=== PATIENT | male | born 1940 | race Caucasian/White ===

== ENCOUNTER 2021-11-26 08:10 | Inpatient (IN) ==
[2021-11-26] MEDS ORDERED: KETOROLAC TROMETHAMINE 15 MG/ML VIAL IV ONE (08:30)
--- NOTE | 2021-11-26 08:32 | Emergency Department Note ---
Impression & Plan Left inguinal pain, Acute pain of left hip ED Provider Note Provider: Temo Mack MD DATE OF SERVICE: 11/26/2021 CHIEF COMPLAINT: Left groin pain HISTORY OF PRESENT ILLNESS: Patient is a 81-year-old gentleman history of hypertension and left inguinal hernia repair in 2019 presenting today with the onset this morning of pain in the left inguinal region around 5 AM. Patient states is worse with movement and cannot move his left leg. Denies significant listing or strain or falls. Patient however is not the best historian and is a bit forgetful during exam. Patient denies numbness or tingling in the lower extremities. Denies other upper abdominal pain. Denies testicular pain. P atient denies fever chills or recent URI symptoms. Patient states his tried to massage the area to help with the pain. Was not effective he does not think he took anything else for pain this morning. States he has been having some on and off discomfort here for some time but cannot give me a lot of details. Family states that he is not been able to walk well and they are concerned about his ability to fall and obviously he is in too much pain to walk today. REVIEW OF SYSTEMS: A total of 10 review of systems was obtained and negative except as stated above in the HPI. PAST MEDICAL HISTORY: As noted above MEDICATIONS: Reviewed home medications SOCIAL HISTORY: Lives at home with PHYSICAL EXAM: GENERAL: alert and oriented to person and month in no acute distress on stretcher but a bit foggy as to the year Head: normocephalic and atraumatic EYES: No injection, discharge or icterus. NECK: Trachea midline. Supple. ENT: Mucous membranes pink and moist. LUNGS: Airway patent. No retractions. Breath sounds clear with good air entry bilaterally. HEART: Regular rate and rhythm. No chest wall tenderness ABDOMEN: Soft and non-tender, without guarding or rebound except for some mild tenderness in the left mid to medial inguinal region. No large bulge appreciated here erythema. No crepitus. SKIN: Acyanotic, warm, dry, without rashes EXTREMITIES: Without swelling, tenderness or deformity however pain with trying to move a range of the left hip. 2+ left DP pulse. No swelling of the left knee or lower leg. No erythema noted left lower leg NEUROLOGICAL: No focal deficits but limitations of movement of the left lower extremity secondary to pain at the hip.. No aphasia. No facial droop or slurred speech. Does have a bit of word finding. Sensation to gross touch normal. PDMP was checked without noted issue. Patient's laboratory studies and imaging reviewed. Differential includes Appendicitis, testicular torsion, infections, diverticulitis, UTI, obstruction, mesenteric ischemia, aortic pathology, inflammatory bowel disease, renal colic, PUD, pancreatitis, biliary pathology, hernia, volvulus, constipation, as well as other pathologies. IMPRESSION/MEDICAL DECISION MAKING: Patient presents waking up with left inguinal pain a little bit of radiation to the left upper thigh. Pain with movement of the leg but denies trauma. Patient himself however is not the best historian. No evidence of significant swelling of the left leg with erythema in this area. No large bulge appreciated. Denies significant testicular pain via history or on palpation with nurse present in the room. Benign abdomen otherwise. Denies nausea or vomiting. Basic labs and CT obtained given history of surgical intervention left inguinal region. I doubt this represents DVT. Blood work here without significant leukocytosis and borderline anemia. No severe electrolyte abnormality or signs of hepatitis or pancreatitis on blood work. Patient with moderate to severe bilateral hip arthritis without evidence of acute fracture or dislocation. CT imaging does not note any evidence of diverticulitis or bowel wall thickening or obstruction. No evidence of hydronep hrosis concerning for kidney stone noted by radiology report as well as no left inguinal hernia. Patient still with significant pain unable to move the leg after medications. states the patient was out 2 days ago doing a lot of yard work walking around. Unable to walk now and with several doses of pain medication on board the patient, family, and myself do not feel that he would be able to ambulate and transfer and care for self at home. Will bring in for further pain control at this time. DIAGNOSIS: Left inguinal and hip pain DISPOSITION: Hospitalist will evaluate Patient was agreeable with this plan. Past Med/Surg History Medical History (Updated 11/26/21 @ 11:49 by Kolton Mckeon MD) Arthritis Hyperlipidemia Hypertension Hypothyroidism Memory deficit POOR HISTORIAN SOB (shortness of breath) on exertion Surgical History History of cardiac cath 30+ YRS AGO 2 STENTS F/U [facility] DR-NAME? ANNUALLY History of colonoscopy History of esophagogastroduodenoscopy (EGD) History of foot surgery Previous back surgery X 2 Social History Smoking Status: Unknown if ever smoked Second Hand Exposure: No; Hx Alcohol Use: Yes Alcohol type: wine Hx Substance Use: No Preferred Language: Nepalese Communication Ability: Effective Rodent Exterminator Required: No Beliefs That Will Affect Care: None Current Living Situation: Spouse and Family Feels Safe at Home: Yes Assistive Devices: Cane and Glasses Allergies Allergies Allergy/AdvReac Type Severity Reaction Status Date / Time No Known Allergies Allergy Verified 05/11/19 08:13 Home Meds Home Medications Medication Instructions Recorded Confirmed Calcium Carbonate (Tums) 1 - 2 tabs PO PRN ##0 08/02/10 05/11/19 Metoprolol Tartrate (Lopressor 1 tab PO BID ##0 08/11/10 11/26/21 Unknown Dose) Artificial Tears 1 - 2 drp OPB PRN #0 BTLS 08/12/10 05/11/19 acetaminophen 650 mg 650 mg PO Q12H PRN Pain 04/22/19 11/26/21 tablet,extended release (Tylenol Arthritis Pain) atorvastatin 20 mg tablet 20 mg PO QAM 04/22/19 05/11/19 omega 5-ioj-vsx-fish oil 1,000 mg 1 cap PO QAM 04/22/19 05/11/19 (120 mg-180 mg) capsule (Fish Oil) thyroid (pork) 30 mg tablet 30 mg PO QAM 04/22/19 05/11/19 ([place] Thyroid) Probiotic 1 tab PO BID 05/11/19 05/11/19 acetaminophen 500 mg tablet 500 mg PO QID PRN Pain 05/11/19 05/11/19 (Tylenol Extra Strength) aspirin 81 mg tablet,delayed 81 mg PO DAILY 05/11/19 05/11/19 release calcium carbonate 600 mg calcium 600 mg PO DAILY 05/11/19 05/11/19 (1,500 mg) tablet (Calcium) cholecalciferol (vitamin D3) 25 25 mcg PO DAILY 05/11/19 05/11/19 mcg (1,000 unit) tablet (Vitamin D3) coQ10 (ubiquinol) 200 mg capsule 200 mg PO DAILY 05/11/19 11/26/21 cyanocobalamin (vitamin B-12) 3,000 mcg subcut 05/11/19 1,000 mcg/mL injection kit (B-12 Compliance) prasterone (dhea) 50 mg tablet 50 mg PO DAILY 05/11/19 05/11/19 (DHEA) vitamin E 268 mg (400 unit) capsule 400 unit PO DAILY 05/11/19 05/11/19 Previous Rx's Medication Instructions Recorded oxycodone-acetaminophen 5 mg-325 1 tab PO Q4H PRN pain #10 tabs 05/11/19 mg tablet (Percocet) Results & Data (ED) Vital Signs Vital Signs - 24 hr 11/26/21 08:17 11/26/21 08:36 11/26/21 09:34 Temperature 36.7 C Temperature Source Oral Pulse Rate 76 73 Pulse Rate from SpO2 Sensor 70 Respiratory Rate 18 20 Blood Pressure 170/77 H 161/73 H 177/93 H Blood Pressure Mean 108 102 121 Pulse Oximetry 94 98 Oxygen Delivery Method Room Air Room Air Sepsis Recent Fever Within 48 Hours No Sepsis New/Unexplained Change in Mental Status No Sepsis Action Taken by Nursing No Action Required 11/26/21 09:34 11/26/21 10:00 11/26/21 10:05 Temperature Temperature Source Pulse Rate Pulse Rate from SpO2 Sensor 79 68 Respiratory Rate Blood Pressure 149/66 H Blood Pressure Mean 93 Pulse Oximetry 100 98 Oxygen Delivery Method Sepsis Recent Fever Within 48 Hours Sepsis New/Unexplained Change in Mental Status Sepsis Action Taken by Nursing 11/26/21 10:05 11/26/21 10:30 11/26/21 10:30 Temperature Temperature Source Pulse Rate 78 79 Pulse Rate from SpO2 Sensor 70 78 Respiratory Rate 26 H 18 Blood Pressure 155/80 H Blood Pressure Mean 105 Pulse Oximetry 96 94 Oxygen Delivery Method Sepsis Recent Fever Within 48 Hours Sepsis New/Unexplained Change in Mental Status Sepsis Action Taken by Nursing 11/26/21 11:00 11/26/21 11:00 11/26/21 11:30 Temperature Temperature Source Pulse Rate 76 Pulse Rate from SpO2 Sensor 76 Respiratory Rate 20 Blood Pressure 163/88 H 147/86 H Blood Pressure Mean 113 106 Pulse Oximetry 97 Oxygen Delivery Method Sepsis Recent Fever Within 48 Hours Sepsis New/Unexplained Change in Mental Status Sepsis Action Taken by Nursing 11/26/21 11:30 Temperature Temperature Source Pulse Rate 71 Pulse Rate from SpO2 Sensor 73 Respiratory Rate 18 Blood Pressure Blood Pressure Mean Pulse Oximetry 97 Oxygen Delivery Method Sepsis Recent Fever Within 48 Hours Sepsis New/Unexplained Change in Mental Status Sepsis Action Taken by Nursing Laboratory Data Result diagrams: 11/26/21 08:20 11/26/21 08:20 Lab Results 11/26/21 11/26/21 11/26/21 Range/Units 08:20 08:20 08:38 WBC 9.34 (4.8-10.8) K/ul RBC 4.10 L (4.63-6.08) M/uL Hgb 13.5 L (14.0-18.0) g/dl Hct 40.3 (40.1-51.0) % MCV 98.3 (80.0-100.0) fL MCH 32.9 (25.0-34.0) pg MCHC 33.5 (32.0-36.0) g/dL RDW Std Deviation 46.9 H (36.4-46.3) fL RDW Coeff of Jordan 13.1 (11.5-14.5) % Plt Count 210 (130-400) K/uL MPV 9.8 (9.4-12.4) fL Immature Gran % (Auto) 0.2 % Neut % (Auto) 73.4 % Lymph % (Auto) 12.5 % Gonzales % (Auto) 9.9 % Eos % (Auto) 3.4 % Baso % (Auto) 0.6 % Neut # (Auto) 6.85 H (1.4-6.5) K/uL Lymph # (Auto) 1.17 L (1.2-3.4) K/uL Gonzales # (Auto) 0.92 H (0.24-0.82) K/uL Eos # (Auto) 0.32 (0-0.50) K/uL Baso # (Auto) 0.06 (0-0.2) K/uL Immature Gran # (Auto) 0.02 (0.00-0.02) K/uL Sodium 141 (136-145) mmol/L Potassium 4.1 (3.5-5.1) mmol/L Chloride 107 (98-107) mmol/L Carbon Dioxide 30 (21-32) mmol/L Anion Gap 4 (3-11) BUN 25 H (6-23) mg/dl Creatinine 1.00 (0.6-1.4) mg/dl Est Cr Clr Drug Dosing Not Reportable Est GFR ( Amer) 80.3 ml/min Est GFR (Non-Af Amer) 69.3 ml/min BUN/Creatinine Ratio 25.0 H (10-20) Glucose 113 H (70-99(Fasting)) mg/dl Calcium 9.1 (8.5-10.1) mg/dl Total Bilirubin 0.7 (0.2-1.0) mg/dl AST 17 (13-39) U/L ALT 16 (7-52) U/L Alkaline Phosphatase 76 (34-104) U/L Total Protein 6.7 (6.0-8.3) gm/dl Albumin 3.9 (3.4-5.0) gm/dl Globulin 2.8 (2.5-4.0) gm/dl Albumin/Globulin Ratio 1.4 (0.9-2) Lipase 6 L (11-82) U/L SARS-CoV-2, RNA, NAAT NEGATIVE (NEGATIVE) Administered Medications Discontinued Medications Enoxaparin Sodium (Enoxaparin Inj 40 Mg/0.4 Ml Syr) 40 mg SQ NOW STA Stop: 11/26/21 11:48 Last Admin: 11/26/21 13:20 Dose: 40 mg Documented By: DEBBIE Fentanyl Citrate (Fentanyl Citrate 100 Mcg/2 Ml Vial) 50 mcg IV NOW STA Stop: 11/26/21 09:27 Last Admin: 11/26/21 09:39 Dose: 50 mcg Documented By: JOHN Ibuprofen (Ibuprofen 600 Mg Tab) 600 mg PO NOW STA Stop: 11/26/21 11:48 Last Admin: 11/26/21 13:20 Dose: 600 mg Documented By: DEBBIE Ioversol (Optiray 320 100ml) 94 ml IV ONCE ONE Stop: 11/26/21 09:48 Last Admin: 11/26/21 09:49 Dose: 94 ml Documented By: DONNA Ketorolac Tromethamine (Ketorolac Tromethamine 15 Mg/Ml Vial) 10 mg IV NOW ONE Stop: 11/26/21 08:31 Last Admin: 11/26/21 08:37 Dose: 10 mg Documented By: JOHN Morphine Sulfate (Morphine Sulfate 4 Mg/Ml 1 Ml Carp\Vial) 4 mg IV NOW STA Stop: 11/26/21 10:07 Last Admin: 11/26/21 10:43 Dose: 4 mg Documented By: AM Imaging Data Radiologist's Impression: Abdomen/Pelvis CT 11/26/21 08:[address] WITH IV CONTRAST CT DOSE: 768.96 mGy.cm HISTORY: Left inguinal pain. TECHNIQUE: Multiaxial CT images of the abdomen and pelvis were performed following the use of intravenous contrast. A dose lowering technique was utilized adhering to the principles of ALARA. COMPARISON STUDY: None. FINDINGS: Suboptimal evaluation due to the motion artifact. The lung bases are essentially clear. No pneumoperitoneum. No pneumatosis. No acute fractures identified. Small fat-containing umbilical hernia. Degenerative changes noted within the lumbar spine. There are 2 hypodensities within the liver with the largest in the right hepatic lobe measuring 7.3 cm. These likely represent cysts. The gallbladder, pancreas, and adrenal glands are unremarkable. There are few punctate calcified granulomas within the spleen. Multiple bilateral peripelvic renal cysts. No renal or ureteral stones. No hydronephrosis. The main portal vein appears patent. Moderate calcified plaque within the normal caliber abdominal aorta. No retroperitoneal lymphadenopathy. No pelvic free fluid. Normal bladder. There is a tiny fat-containing right inguinal hernia. No bowel wall thickening or obstruction. Normal appendix. IMPRESSION: 1. No bowel wall thickening or obstruction. 2. Normal appendix. 3. No hydronephrosis. 4. Additional findings as described above. ACT 112: Negative or not required by law. Electronically signed by: Alfredo Acevedo M.D. 11/26/2021 9:58 AM Hip/Pelvis X-Ray 11/26/21 08:37 XR hip LT 2V w pelvis CLINICAL HISTORY: Left hip pain. COMPARISON: None FINDINGS: Sacroiliac joints and symphysis pubis are intact. No acute fracture within the pelvis or hips is identified. There is no evidence for avascular necrosis of the femoral heads. There is moderate to severe osteoarthritis of the bilateral hips with joint space narrowing and osteophytosis. No suspicious osseous lesion is identified. IMPRESSION: 1. No acute fracture within the pelvis or hips. 2. Moderate to severe bilateral hip osteoarthritis. ACT 112: Negative or not required by law. Electronically signed by: Carmelo Galeana M.D. 11/26/2021 9:42 AM Discharge Plan Visit Data Chief Complaint: Groin Pain Stated Complaint: L GROIN PAIN ED Provider: Temo Mack Discharge Problem: Left inguinal pain, Acute pain of left hip Patient Disposition: Being Evaluated by Hospitalist Discharge Instructions Interventions: ED Discharge Assessment Last Done: 11/26/21 13:35
[2021-11-26 08:33] LABS: Basophils # (auto) 0.06 K/uL (0-0.2); Basophils % (auto) 0.6 %; Eosinophils # (auto) 0.32 K/uL (0-0.50); Eosinophils % (auto) 3.4 %; Hematocrit (blood only) 40.3 % (40.1-51.0); Hemoglobin 13.5 g/dl (14.0-18.0); Immature Granulocytes # (auto) 0.02 K/uL (0.00-0.02); Immature Granulocytes % (auto) 0.2 %; Lymphocytes # (auto) 1.17 K/uL (1.2-3.4); Lymphocytes % (auto) 12.5 %; Mean Corpuscular Hemoglobin 32.9 pg (25.0-34.0); Mean Corpuscular Hgb Conc 33.5 g/dL (32.0-36.0); Mean Corpuscular Volume 98.3 fL (80.0-100.0); Mean Platelet Volume 9.8 fL (9.4-12.4); Monocytes # (auto) 0.92 K/uL (0.24-0.82); Monocytes % (auto) 9.9 %; Neutrophils # (auto) 6.85 K/uL (1.4-6.5); Neutrophils % (auto) 73.4 %; Platelet Count 210 K/uL (130-400); RDW Coefficient of Variation 13.1 % (11.5-14.5); RDW Standard Deviation 46.9 fL (36.4-46.3); White Blood Count 9.34 K/ul (4.8-10.8)
[2021-11-26 08:56] LABS: Alanine Aminotransferase 16 U/L (7-52); Albumin Globulin Ratio 1.4 (0.9-2); Albumin Level 3.9 gm/dl (3.4-5.0); Alkaline Phosphatase 76 U/L (34-104); Anion Gap 4 (3-11); Aspartate Aminotransferase 17 U/L (13-39); Bilirubin,Total 0.7 mg/dl (0.2-1.0); Blood Urea Nitrogen 25 mg/dl (6-23); Calcium 9.1 mg/dl (8.5-10.1); Carbon Dioxide 30 mmol/L (21-32); Chloride 107 mmol/L (98-107); Est GFR (African American) 80.3 ml/min; Est GFR (Non-African American) 69.3 ml/min; Globulin 2.8 gm/dl (2.5-4.0); Glucose 113 mg/dl (70-99(Fasting)); Lipase 6 U/L (11-82); Potassium 4.1 mmol/L (3.5-5.1); Sodium 141 mmol/L (136-145); Total Protein 6.7 gm/dl (6.0-8.3)
[2021-11-26] MEDS ORDERED: fentaNYL citrate 100 MCG/2 ML VIAL IV STA (09:26)
--- NOTE | 2021-11-26 09:44 | XRay Report ---
XR hip LT 2V w pelvis CLINICAL HISTORY: Left hip pain. COMPARISON: None FINDINGS: Sacroiliac joints and symphysis pubis are intact. No acute fracture within the pelvis or h ips is identified. There is no evidence for avascular necrosis of the femoral heads. There is moderat e to severe osteoarthritis of the bilateral hips with joint space narrowing and osteophytosis. No irene picious osseous lesion is identified. IMPRESSION: 1. No acute fracture within the pelvis or hips. 2. Moderate to severe bilateral hip osteoarthritis. ACT 112: Negative or not required by law. Electronically signed by: Carmelo Galeana M.D. 11/26/2021 9:42 AM
[2021-11-26] MEDS ORDERED: OPTIRAY 320 100ml IV ONE (09:47)
--- NOTE | 2021-11-26 10:00 | CT Scan Report ---
ABDOMEN AND PELVIS CT WITH IV CONTRAST CT DOSE: 768.96 mGy.cm HISTORY: Left inguinal pain. TECHNIQUE: Multiaxial CT images of the abdomen and pelvis were performed following the use of intrave nous contrast. A dose lowering technique was utilized adhering to the principles of ALARA. COMPARISON STUDY: None. FINDINGS: Suboptimal evaluation due to the motion artifact. The lung bases are essentially clear. No pneumoperitoneum. No pneumatosis. No acute fractures identified. Small fat-containing umbilical herni a. Degenerative changes noted within the lumbar spine. There are 2 hypodensities within the liver wit h the largest in the right hepatic lobe measuring 7.3 cm. These likely represent cysts. The gallbladd er, pancreas, and adrenal glands are unremarkable. There are few punctate calcified granulomas within the spleen. Multiple bilateral peripelvic renal cysts. No renal or ureteral stones. No hydronephrosi s. The main portal vein appears patent. Moderate calcified plaque within the normal caliber abdominal aorta. No retroperitoneal lymphadenopathy. No pelvic free fluid. Normal bladder. There is a tiny fat -containing right inguinal hernia. No bowel wall thickening or obstruction. Normal appendix. IMPRESSION: 1. No bowel wall thickening or obstruction. 2. Normal appendix. 3. No hydronephrosis. 4. Additional findings as described above. ACT 112: Negative or not required by law. Electronically signed by: Alfredo Acevedo M.D. 11/26/2021 9:58 AM
[2021-11-26] MEDS ORDERED: MoRPHine SULFATE 4 MG/ML 1 ML CARP\\VIAL IV STA (10:06)
[2021-11-26] MEDS ORDERED: ACETAMINOPHEN 500 MG TAB PO PRN (11:35)
[2021-11-26] MEDS ORDERED: IBUPROFEN 600 MG TAB PO STA (11:47)
[2021-11-26] MEDS ORDERED: ENOXAPARIN INJ 40 MG/0.4 ML SYR SQ STA (11:47)
--- NOTE | 2021-11-26 11:51 | History & Physical Report ---
Date of Service November 26, 2021 Assessment & Plan (1) Bilateral hip joint arthritis: Plan: Presented with left groin pain that goes up to the left knee Pelvis x-ray did not show severe bilateral hip arthritis Clinically worse in the left side with possible left greater trochanteric bursitis Has had injection before without any significant improvement Ortho has been consulted Will try ibuprofen regularly and narcotics as needed for pain control (2) Left inguinal pain: Plan: History of left inguinal hernia surgery The pain is mostly secondary to hip arthritis (3) Hypertension: Plan: Remains in the upper side Will continue home medications (4) Hypothyroidism: Plan: Continue replacement (5) Memory deficit: Plan: No delirium (6) Hyperlipidemia: Plan: Continue supplement DVT prophylaxis Subcu Lovenox CODE STATUS Full History of Present Illness Chief Complaint: Left groin pain since this morning and inability to ambulate Primary Care Provider: Angelo Cano MD He is an 81-year-old male with significant past medical history of atherosclerotic cardiovascular disease, chronic kidney disease stage III, BPH, hyperlipidemia, memory changes apparently has been complaining of Left inguinal pain for a while. He has had surgery for the left Inguinal Hernia years ago and he thinks the hernia surgery site is bothering him. His pain was worse this morning that he could hardly ambulate. He has been trying Tylenol occasionally to control the pain. His pain is worse with movement and it goes down to the left knee joint and denies any problem with urine and or bowel habit. He does not have any arthritis involving other joint. He has had injection in the left greater trochanteric area but that did not help the pain in the past. X-ray of the pelvis did show moderate to severe osteoarthritis involving the hips worse on the left than the right. Allergies Allergy/AdvReac Type Severity Reaction Status Date / Time No Known Allergies Allergy Verified 05/11/19 08:13 Home Medications Medication Instructions Recorded Confirmed Type Calcium Carbonate (Tums) 1 - 2 tabs PO PRN ##0 08/02/10 05/11/19 History Metoprolol Tartrate (Lopressor 1 tab PO BID ##0 08/11/10 11/26/21 History Unknown Dose) Artificial Tears 1 - 2 drp OPB PRN #0 BTLS 08/12/10 05/11/19 History acetaminophen 650 mg 650 mg PO Q12H PRN Pain 04/22/19 11/26/21 History tablet,extended release (Tylenol Arthritis Pain) atorvastatin 20 mg tablet 20 mg PO QAM 04/22/19 05/11/19 History omega 3-soy-vck-fish oil 1,000 mg 1 cap PO QAM 04/22/19 05/11/19 History (120 mg-180 mg) capsule (Fish Oil) thyroid (pork) 30 mg tablet 30 mg PO QAM 04/22/19 05/11/19 History ([place] Thyroid) Probiotic 1 tab PO BID 05/11/19 05/11/19 History acetaminophen 500 mg tablet 500 mg PO QID PRN Pain 05/11/19 05/11/19 History (Tylenol Extra Strength) aspirin 81 mg tablet,delayed 81 mg PO DAILY 05/11/19 05/11/19 History release calcium carbonate 600 mg calcium 600 mg PO DAILY 05/11/19 05/11/19 History (1,500 mg) tablet (Calcium) cholecalciferol (vitamin D3) 25 25 mcg PO DAILY 05/11/19 05/11/19 History mcg (1,000 unit) tablet (Vitamin D3) coQ10 (ubiquinol) 200 mg capsule 200 mg PO DAILY 05/11/19 11/26/21 History cyanocobalamin (vitamin B-12) 3,000 mcg subcut 05/11/19 History 1,000 mcg/mL injection kit (B-12 Compliance) oxycodone-acetaminophen 5 mg-325 1 tab PO Q4H PRN pain #10 tabs 05/11/19 Rx mg tablet (Percocet) prasterone (dhea) 50 mg tablet 50 mg PO DAILY 05/11/19 05/11/19 History (DHEA) vitamin E 268 mg (400 unit) capsule 400 unit PO DAILY 05/11/19 05/11/19 History Past Med/Surg History Medical History (Updated 11/26/21 @ 11:49 by Kolton Mckeon MD) Arthritis Hyperlipidemia Hypertension Hypothyroidism Memory deficit POOR HISTORIAN SOB (shortness of breath) on exertion Surgical History History of cardiac cath 30+ YRS AGO 2 STENTS F/[facility] DR-NAME? ANNUALLY History of colonoscopy History of esophagogastroduodenoscopy (EGD) History of foot surgery Previous back surgery X 2 Social History Smoking Status: Unknown if ever smoked Second Hand Exposure: No; Hx Alcohol Use: Yes Alcohol type: wine Hx Substance Use: No Preferred Language: Syrian Communication Ability: Effective Head Paper Tester Required: No Beliefs That Will Affect Care: None Current Living Situation: Spouse and Family Feels Safe at Home: Yes Assistive Devices: Cane and Glasses Review of Systems Review of Systems: All systems reviewed and are unremarkable except as noted below Musculoskeletal: Left hip pain and very tender left greater trochanteric area. Any movement of the left lower extremity caused severe pain in the left hip Physical Exam Physical Exam: Lying in bed with some distress secondary to left groin and hip pain Constitutional: well developed, well nourished, + ill appearing and + obese Eyes: PERRL, conjunctivae normal, anicteric sclerae ENMT: external ear and nose normal, oropharynx normal Neck: trachea midline, no thyromegaly Respiratory: no respiratory distress Auscultation: lungs clear to auscultation bilaterally Cardiovascular: Rate/Rhythm: regular rate and regular rhythm; not tachycardic Heart Sounds: normal S1 and normal S2; no murmur Extremities: no edema Gastrointestinal (Abdomen): Inspection/Auscultation: normal bowel sounds; abdomen not distended Percussion/Palpation: + abdomen tender (Tender in the left inguinal area with a small nodule/lymph node which is no) and abdomen soft Musculoskeletal: Hip: + joint line tenderness (Any movement of the left lower extremity caused severe pain in the left hip) Neurologic: Alert, awake and oriented x3 Lymphatic: no cervical or axillary lymphadenopathy Results & Data Results & Data ([facility]) Vital Signs (Past 12 Hours) Vital Signs Temp Pulse Resp BP Pulse Ox O2 Del Method 11/26/21 08:36 73 20 161/73 H 98 Room Air 11/26/21 08:17 36.7 C 76 18 170/77 H 94 Room Air Laboratory Results Short CBC 11/26/21 Range/Units 08:20 WBC 9.34 (4.8-10.8) K/ul Hgb 13.5 L (14.0-18.0) g/dl Hct 40.3 (40.1-51.0) % Plt Count 210 (130-400) K/uL BMP 11/26/21 08:20 Sodium 141 Potassium 4.1 Chloride 107 Carbon Dioxide 30 BUN 25 H Creatinine 1.00 Glucose 113 H Calcium 9.1 Liver Function 11/26/21 Range/Units 08:20 Total Bilirubin 0.7 (0.2-1.0) mg/dl AST 17 (13-39) U/L ALT 16 (7-52) U/L Alkaline Phosphatase 76 (34-104) U/L Albumin 3.9 (3.4-5.0) gm/dl Medications Administered Current Inpatient Medications Acetaminophen (Acetaminophen 500 Mg Tab) 1,000 mg PO Q8H PRN PRN Reason: Moderate Pain Stop: 12/26/21 11:44 Enoxaparin Sodium (Enoxaparin Inj 40 Mg/0.4 Ml Syr) 40 mg SQ QAM KAYLAN Stop: 12/27/21 08:59 Enoxaparin Sodium (Enoxaparin Inj 40 Mg/0.4 Ml Syr) 40 mg SQ NOW STA Stop: 11/26/21 11:48 Ibuprofen (Ibuprofen 600 Mg Tab) 600 mg PO Q8H KAYLAN Stop: 12/26/21 11:44 Ibuprofen (Ibuprofen 600 Mg Tab) 600 mg PO NOW STA Stop: 11/26/21 11:48 Code Status & VTE Plan VTE Prophylaxis Plan VTE Prophylaxis will be ordered: Yes
[2021-11-26 11:54] LABS: Appearance Urine Clear (Clear); Bilirubin Urine Negative (Negative); Blood Urine Negative (Negative); Color Urine Yellow; Glucose Urine UA Negative (Negative); Ketones Urine 1+ (Negative); Leukocyte Esterase Urine Negative (Negative); Nitrite Urine Negative (Negative); Protein Urine Negative (Negative); Specific Gravity Urine > 1.045 (1.000-1.030); Urobilinogen Urine Negative (Negative)
[2021-11-26] MEDS ORDERED: MoRPHine SULFATE 4 MG/ML 1 ML CARP\\VIAL IV PRN (13:48)
[2021-11-26] MEDS ORDERED: KETOROLAC TROMETHAMINE 15 MG/ML VIAL IV PRN (13:48)
[2021-11-26] MEDS ORDERED: ACETAMINOPHEN 325 MG TAB PO PRN (14:18)
--- NOTE | 2021-11-26 17:53 | Orthopedic Consultation ---
Date of Service November 26, 2021 Assessment & Plan (1) Acute pain of left hip: -Differential includes symptomatic hip arthritis vs trochanteric bursitis vs lumbar radiculopathy. Unclear based on history, exam, and hip XRs. -Recommend a trial of oral prednisone taper for pain control. -Check CRP, ESR to screen for baseline inflammatory condition -Needs PT/OT evaluation for placement, may need inpatient rehab vs SNF; can be WBAT LLE Dispo: Admit for observation and inpatient PT/OT evaluation. Call with questions Pt seen and discussed w/ Dr. Pal. History of Present Illness Reason for Consultation: L hip pain . Requesting Physician: Kolton Mckeon MD . Attending Physician: Kolton Mckeon MD Pt is an 81 y/o/m with PMHx of HTN, DLD, hypothyroidism, and baseline memory deficit who we are consulted on for L hip pain. Early this morning pt woke to severe left hip pain. His family tried getting him up out of bed but were unable to do so given his severe level of hip pain. He was subsequently brought to [facility] ED for evaluation. Work up has essentially been unrevealing except for XRs that show moderate degenerative changes. Family denies any recent history of falls or syncopal events. Seen at bedside. He is a poor historian but indicates his left groin, lateral hip, and posterior hip/Lumbar spine as areas he is experiencing pain. He denies numbness in the LLE but states that the leg have been "giving out" for awhile. Denies any chest pain, SOB, dizziness/lightheadedness, nausea/vomiting, subjective fever. 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 Home Medications Medication Instructions Recorded Confirmed Type atorvastatin 20 mg tablet 20 mg PO QAM 04/22/19 11/26/21 History aspirin 81 mg tablet,delayed 81 mg PO DAILY 05/11/19 11/26/21 History release cholecalciferol (vitamin D3) 25 25 mcg PO DAILY 05/11/19 11/26/21 History mcg (1,000 unit) tablet (Vitamin D3) coQ10 (ubiquinol) 200 mg capsule 200 mg PO DAILY 05/11/19 11/26/21 History prasterone (dhea) 50 mg tablet 50 mg PO DAILY 05/11/19 11/26/21 History (DHEA) Lactobacillus acidophilus 1.5 mg 1,000 mmu cells PO BID 11/26/21 11/26/21 History (250 million cell) capsule (Probiotic Acidophilus) acetaminophen 650 mg 650 mg PO Q8H PRN Pain 11/26/21 11/26/21 History tablet,extended release carbidopa 25 mg-levodopa 100 mg 1 tab PO TID 11/26/21 11/26/21 History tablet cyanocobalamin (vitamin B-12) 1,000 mcg sublingual DAILY 11/26/21 11/26/21 History 1,000 mcg sublingual tablet metoprolol tartrate 25 mg tablet 12.5 mg PO BID 11/26/21 11/26/21 History omega-3 fatty acids 1,250 mg 1,250 mg PO DAILY 11/26/21 11/26/21 History capsule vitamin E 268 mg (400 unit) capsule 268 mg PO DAILY 11/26/21 11/26/21 History Past Med/Surg History Medical History (Updated 11/26/21 @ 11:49 by Kolton Mckeon MD) Arthritis Hyperlipidemia Hypertension Hypothyroidism Memory deficit POOR HISTORIAN SOB (shortness of breath) on exertion Surgical History History of cardiac cath 30+ YRS AGO 2 STENTS F/U [facility] DR-NAME? 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 Physical Exam General: Pleasant 81 y/o/m resting in bed in NAD. Confused but interacting appropriately. LLE: He has tenderness globally throughout the left hip. He has tenderness to anterior proximal thigh as well. No swelling, bruising deformity noted. He has very guarded passive and active range of motion of the left hip joint. Passive log roll illicits worsening groin pain. He can perform a straight leg raise against gravity. He is distally N/V/I. Results & Data Results & Data Laboratory Results Reviewed . Diagnostic Findings Reviewed - Moderate degenerative changes in L hip joint . PG Care Time/CCT Total # of Minutes Spent Total Time Spent with Patient: Total time spent is greater than 50% in coordination of care (as documented) at patient's floor/unit and/or counseling patient: Coding Level of Care Code 73809 Inpt Consult Level 3 Diagnoses Acute pain of left hip M25.552
[2021-11-26] MEDS ORDERED: IBUPROFEN 600 MG TAB PO SCH (20:00)
[2021-11-26] MEDS: Patient's HEIGHT &/or WEIGHT Needed SCH ×3 (20:20→20:21)
[2021-11-26] MEDS: METOPROLOL TARTRATE 25 MG TAB PO SCH (21:26)
[2021-11-27 08:14] LABS: Basophils # (auto) 0.04 K/uL (0-0.2); Basophils % (auto) 0.5 %; Eosinophils # (auto) 0.08 K/uL (0-0.50); Eosinophils % (auto) 0.9 %; Hematocrit (blood only) 38.2 % (40.1-51.0); Immature Granulocytes # (auto) 0.03 K/uL (0.00-0.02); Immature Granulocytes % (auto) 0.4 %; Lymphocytes % (auto) 8.3 %; Mean Corpuscular Hemoglobin 33.1 pg (25.0-34.0); Mean Corpuscular Volume 97.2 fL (80.0-100.0); Mean Platelet Volume 10.2 fL (9.4-12.4); Monocytes # (auto) 0.64 K/uL (0.24-0.82); Monocytes % (auto) 7.6 %; Neutrophils # (auto) 6.98 K/uL (1.4-6.5); Neutrophils % (auto) 82.3 %; Platelet Count 199 K/uL (130-400); RDW Coefficient of Variation 13.2 % (11.5-14.5); RDW Standard Deviation 47.4 fL (36.4-46.3); Red Blood Count 3.93 M/uL (4.63-6.08); White Blood Count 8.47 K/ul (4.8-10.8)
[2021-11-27 08:37] LABS: BUN Creatinine Ratio 29.5 (10-20); C Reactive Protein 6.3 mg/dl (0-0.5); Calcium 8.7 mg/dl (8.5-10.1); Est GFR (African American) 85.5 ml/min; Est GFR (Non-African American) 73.7 ml/min; Magnesium 1.9 mg/dl (1.7-2.4); Potassium 3.9 mmol/L (3.5-5.1)
[2021-11-27] MEDS ORDERED: MoRPHine SULFATE 4 MG/ML 1 ML CARP\\VIAL IV PRN (08:40)
[2021-11-27] MEDS ORDERED: NON-FORMULARY MEDICATION (Coq10 (Ubiquinol) 200 mg Capsule) PO SCH (09:00)
[2021-11-27] MEDS: ACETAMINOPHEN 325 MG TAB PO SCH ×4 (10:16→23:25)
[2021-11-27] MEDS: oxyCODONE HCL IR 5 MG TAB (IMMEDIATE RELEASE) PO PRN ×3 (10:16→20:13)
[2021-11-27] MEDS: LIDOCAINE 5% 1 PATCH TD SCH (10:16)
[2021-11-27] MEDS: METOPROLOL TARTRATE 25 MG TAB PO SCH ×2 (11:11→20:09)
[2021-11-27] MEDS: ENOXAPARIN INJ 40 MG/0.4 ML SYR SQ SCH (13:32)
--- NOTE | 2021-11-27 19:39 | Hospitalist Progress Note ---
Date of Service November 27, 2021 Assessment & Plan (1) Bilateral hip joint arthritis: Plan: Presented with left groin pain that goes up to the left knee. Tenderness on palpation of hip L>R Pelvis x-ray did show moderate to severe bilateral hip arthritis but no fracture Seen by ortho- recommendations noted. ESR, CRP elevated. Continue pain management. Consider trial of oral steroids if not improving. Needs OP follow up for steroid injections consideration PT eval pending (2) Left inguinal pain: Plan: History of left inguinal hernia surgery The pain is mostly secondary to hip arthritis (3) Hypertension: Plan: Remains in the upper side Will continue home medications (4) Hypothyroidism: Plan: Continue replacement (5) Memory deficit: Plan: No delirium (6) Hyperlipidemia: Plan: Continue supplement DVT prophylaxis- Subcu Lovenox Updated Admission and Anticipated Discharge Date Admission Date: November 26, 2021 Subjective He was in severe pain this morning but had received pain meds prior to my encounter and was hence comfortable. Discussed about his bilateral hip osteoarthritis and options. No fever, chills, nausea, vomiting, abd pain. Physical Exam Physical Exam: General: Lying comfortably in bed, not in acute distress, on room air HEENT: EOMI, JUDY, MMM Chest: Clear breath sounds bilaterally, no wheezes or crackles CVS: Regular rate and rhythm, normal heart sounds, no murmur Abdomen: Soft, non tender, not distended, normal bowel sounds Neuro: Awake, alert and conversing well but tangential, forgetful Extremities: Tenderness on palpation of bilateral hip L>R. No edema Results & Data Results & Data ([facility]) Vital Signs (Past 12 Hours) Vital Signs Temp Pulse Resp BP BP Pulse Ox O2 Del Method 11/27/21 15:18 36.6 C 82 20 149/74 H 97 Room Air 11/27/21 09:10 36.8 C 80 16 141/69 H 98 Room Air 11/27/21 11:09 73 149/74 H Laboratory Results Short CBC 11/27/21 Range/Units 08:00 WBC 8.47 (4.8-10.8) K/ul Hgb 13.0 L (14.0-18.0) g/dl Hct 38.2 L (40.1-51.0) % Plt Count 199 (130-400) K/uL BMP 11/27/21 08:00 Sodium 139 Potassium 3.9 Chloride 106 Carbon Dioxide 27 BUN 28 H Creatinine 0.95 Glucose 162 H Calcium 8.7 Medications Administered Current Inpatient Medications Acetaminophen (Acetaminophen 325 Mg Tab) 650 mg PO Q6 [facility] Stop: 12/27/21 08:44 Last Admin: 11/27/21 18:07 Dose: 650 mg Enoxaparin Sodium (Enoxaparin Inj 40 Mg/0.4 Ml Syr) 40 mg SQ QAM [facility] Stop: 12/27/21 10:59 Last Admin: 11/27/21 13:32 Dose: 40 mg Lidocaine (Lidocaine 5% 1 Patch) 1 patch TD QAM [facility] Stop: 12/27/21 08:59 Last Admin: 11/27/21 10:16 Dose: 1 patch Metoprolol Tartrate (Metoprolol Tartrate 25 Mg Tab) 12.5 mg PO BID [facility] Stop: 12/26/21 20:59 Last Admin: 11/27/21 11:11 Dose: 12.5 mg Miscellaneous (Remove Lidoderm Patch) 1 each N/A DAILY@2100 [facility] Stop: 12/27/21 20:59 Morphine Sulfate (Morphine Sulfate 4 Mg/Ml 1 Ml Carp\Vial) 4 mg IV Q6H PRN PRN Reason: sev pain if unable to take po Stop: 12/10/21 13:47 Last Admin: 11/27/21 11:45 Dose: 4 mg Oxycodone HCl (Oxycodone Hcl Ir 5 Mg Tab (Immediate Release)) 5 mg PO Q4 PRN PRN Reason: sev Pain Stop: 12/11/21 08:39 Last Admin: 11/27/21 15:16 Dose: 5 mg
[2021-11-28] MEDS: oxyCODONE HCL IR 5 MG TAB (IMMEDIATE RELEASE) PO PRN ×2 (02:06→13:58)
[2021-11-28] MEDS: ACETAMINOPHEN 325 MG TAB PO SCH ×4 (05:15→23:48)
[2021-11-28] MEDS: LIDOCAINE 5% 1 PATCH TD SCH (09:19)
[2021-11-28] MEDS: METOPROLOL TARTRATE 25 MG TAB PO SCH ×2 (09:19→21:08)
[2021-11-28] MEDS: ENOXAPARIN INJ 40 MG/0.4 ML SYR SQ SCH (09:20)
--- NOTE | 2021-11-28 17:34 | Hospitalist Progress Note ---
Date of Service November 28, 2021 Assessment & Plan (1) Bilateral hip joint arthritis: Plan: Presented with left groin pain that goes up to the left knee. Tenderness on palpation of hip L>R yesterday but not appreciated today Pelvis x-ray did show moderate to severe bilateral hip arthritis but no fracture Seen by ortho- recommendations noted. ESR, CRP elevated. Continue pain management. Consider trial of oral steroids if not improving. Consider OP follow up for steroid injections consideration PT recommended rehab- informed CM (2) Left inguinal pain: Plan: History of left inguinal hernia surgery The pain is mostly secondary to hip arthritis (3) Hypertension: Plan: stable, continue home medications (4) Hypothyroidism: Plan: Continue replacement (5) Memory deficit: Plan: No delirium (6) Hyperlipidemia: Plan: Continue supplement DVT prophylaxis- Subcu Lovenox Updated over the phone Dispo- PT recommends rehab- CM following. Stable to go to rehab. Admission and Anticipated Discharge Date Admission Date: November 26, 2021 Subjective He feels better today. he is surprised he is not having any hip pain today. No fever, chills, chest pain, shortness of breath, nausea, vomiting. Physical Exam Physical Exam: General: Lying comfortably in bed, not in acute distress, on room air HEENT: EOMI, JUDY, MMM Chest: Clear breath sounds bilaterally, no wheezes or crackles CVS: Regular rate and rhythm, normal heart sounds, no murmur Abdomen: Soft, non tender, not distended, normal bowel sounds Neuro: Awake, alert and conversing well Extremities: No edema, no tenderness. Ice pack on left hip Results & Data Results & Data ([facility]) Vital Signs (Past 12 Hours) Vital Signs Temp Pulse Resp BP Pulse Ox O2 Del Method 11/28/21 17:07 36.7 C 66 18 117/66 95 Room Air 11/28/21 07:57 36.8 C 62 18 126/66 97 Room Air Medications Administered Current Inpatient Medications Acetaminophen (Acetaminophen 325 Mg Tab) 650 mg PO Q6 [facility] Stop: 12/27/21 08:44 Last Admin: 11/28/21 14:00 Dose: 650 mg Enoxaparin Sodium (Enoxaparin Inj 40 Mg/0.4 Ml Syr) 40 mg SQ QAM [facility] Stop: 12/27/21 10:59 Last Admin: 11/28/21 09:20 Dose: 40 mg Lidocaine (Lidocaine 5% 1 Patch) 1 patch TD QAM [facility] Stop: 12/27/21 08:59 Last Admin: 11/28/21 09:19 Dose: 1 patch Metoprolol Tartrate (Metoprolol Tartrate 25 Mg Tab) 12.5 mg PO BID [facility] Stop: 12/26/21 20:59 Last Admin: 11/28/21 09:19 Dose: 12.5 mg Miscellaneous (Remove Lidoderm Patch) 1 each N/A DAILY@2100 [facility] Stop: 12/27/21 20:59 Last Admin: 11/27/21 20:13 Dose: 1 each Morphine Sulfate (Morphine Sulfate 4 Mg/Ml 1 Ml Carp\Vial) 4 mg IV Q6H PRN PRN Reason: sev pain if unable to take po Stop: 12/10/21 13:47 Last Admin: 11/27/21 11:45 Dose: 4 mg Oxycodone HCl (Oxycodone Hcl Ir 5 Mg Tab (Immediate Release)) 5 mg PO Q4 PRN PRN Reason: sev Pain Stop: 12/11/21 08:39 Last Admin: 11/28/21 13:58 Dose: 5 mg
[2021-11-28] MEDS: POLYETHYLENE (MIRALAX) 17 GM PACK PO SCH (21:08)
[2021-11-28] MEDS: DOCUSATE SODIUM/SENNA 50/8.6MG TAB PO SCH (21:08)
[2021-11-29] MEDS: ACETAMINOPHEN 325 MG TAB PO SCH ×4 (05:02→23:32)
[2021-11-29] MEDS: POLYETHYLENE (MIRALAX) 17 GM PACK PO SCH (09:42)
[2021-11-29] MEDS: METOPROLOL TARTRATE 25 MG TAB PO SCH ×2 (09:43→20:34)
[2021-11-29] MEDS: DOCUSATE SODIUM/SENNA 50/8.6MG TAB PO SCH ×2 (09:44→20:34)
[2021-11-29] MEDS: ENOXAPARIN INJ 40 MG/0.4 ML SYR SQ SCH (09:45)
[2021-11-29] MEDS: LIDOCAINE 5% 1 PATCH TD SCH (09:46)
[2021-11-29] MEDS: oxyCODONE HCL IR 5 MG TAB (IMMEDIATE RELEASE) PO PRN ×3 (11:23→23:32)
--- NOTE | 2021-11-29 17:52 | Hospitalist Progress Note ---
Date of Service November 29, 2021 Assessment & Plan (1) Bilateral hip joint arthritis: Plan: Presented with left groin pain that goes up to the left knee. Tenderness on palpation of hip L>R yesterday but not appreciated today Pelvis x-ray did show moderate to severe bilateral hip arthritis but no fracture Seen by ortho- recommendations noted. ESR, CRP elevated. Continue pain management. Consider trial of oral steroids if not improving. Consider OP follow up for steroid injections consideration PT recommended rehab- informed CM Pain is minimally improved Will try diclofenac sodium over left greater trochanteric area (2) Left inguinal pain: Plan: History of left inguinal hernia surgery The pain is mostly secondary to hip arthritis (3) Hypertension: Plan: stable, continue home medications (4) Hypothyroidism: Plan: Continue replacement (5) Memory deficit: Plan: No delirium (6) Hyperlipidemia: Plan: Continue supplement DVT prophylaxis- Subcu Lovenox Updated over the phone Dispo- PT recommends rehab- CM following. Stable to go to rehab. Has had a long discussion with the patient Strongly advised to participate in physical therapy Admission and Anticipated Discharge Date Admission Date: November 26, 2021 Subjective 11/29/2021 The patient was seen and examined in medical floor Still complains to have some pain in the left groin and left greater trochanteric bursa Seems a little better compared with the day of admission Will continue physical therapy Review of Systems Review of Systems: All systems reviewed and are unremarkable except as noted below Physical Exam Physical Exam: Lying in bed with some distress secondary to left groin and hip pain Constitutional: well developed, well nourished, + ill appearing and + obese Eyes: PERRL, conjunctivae normal, anicteric sclerae ENMT: external ear and nose normal, oropharynx normal Neck: trachea midline, no thyromegaly Respiratory: no respiratory distress Auscultation: lungs clear to auscultation bilaterally Cardiovascular: Rate/Rhythm: regular rate and regular rhythm; not tachycardic Heart Sounds: normal S1 and normal S2; no murmur Extremities: no edema Gastrointestinal (Abdomen): Inspection/Auscultation: normal bowel sounds; abdomen not distended Percussion/Palpation: + abdomen tender (Tender in the left inguinal area with a small nodule/lymph node which is no) and abdomen soft Musculoskeletal: Hip: + joint line tenderness (Any movement of the left lower extremity caused severe pain in the left hip) Lymphatic: no cervical or axillary lymphadenopathy Results & Data Results & Data ([facility]) Vital Signs (Past 12 Hours) Vital Signs Temp Pulse Resp BP Pulse Ox O2 Del Method 11/29/21 08:44 36.8 C 92 H 18 146/82 H 97 Room Air Medications Administered Current Inpatient Medications Acetaminophen (Acetaminophen 325 Mg Tab) 650 mg PO Q6 [facility] Stop: 12/27/21 08:44 Last Admin: 11/29/21 17:44 Dose: 650 mg Enoxaparin Sodium (Enoxaparin Inj 40 Mg/0.4 Ml Syr) 40 mg SQ QAM [facility] Stop: 12/27/21 10:59 Last Admin: 11/29/21 09:45 Dose: 40 mg Lidocaine (Lidocaine 5% 1 Patch) 1 patch TD QAM [facility] Stop: 12/27/21 08:59 Last Admin: 11/29/21 09:46 Dose: 1 patch Metoprolol Tartrate (Metoprolol Tartrate 25 Mg Tab) 12.5 mg PO BID [facility] Stop: 12/26/21 20:59 Last Admin: 11/29/21 09:43 Dose: 12.5 mg Miscellaneous (Remove Lidoderm Patch) 1 each N/A DAILY@2100 [facility] Stop: 12/27/21 20:59 Last Admin: 11/28/21 21:08 Dose: 1 each Morphine Sulfate (Morphine Sulfate 4 Mg/Ml 1 Ml Carp\Vial) 4 mg IV Q6H PRN PRN Reason: sev pain if unable to take po Stop: 12/10/21 13:47 Last Admin: 11/27/21 11:45 Dose: 4 mg Oxycodone HCl (Oxycodone Hcl Ir 5 Mg Tab (Immediate Release)) 5 mg PO Q4 PRN PRN Reason: sev Pain Stop: 12/11/21 08:39 Last Admin: 11/29/21 17:44 Dose: 5 mg Polyethylene Glycol (Polyethylene (Miralax) 17 Gm Pack) 17 gm PO DAILY [facility] Stop: 12/28/21 18:44 Last Admin: 11/29/21 09:42 Dose: 17 gm Senna/Docusate Sodium (Docusate Sodium/Senna 50/8.6mg Tab) 1 tab PO BID [facility] Stop: 12/28/21 20:59 Last Admin: 11/29/21 09:44 Dose: 1 tab
[2021-11-29] MEDS: DICLOFENAC SOD 1% GEL 100 GM TUBE EXT SCH (20:34)
[2021-11-30] MEDS: ACETAMINOPHEN 325 MG TAB PO SCH ×3 (06:19→18:03)
[2021-11-30] MEDS: oxyCODONE HCL IR 5 MG TAB (IMMEDIATE RELEASE) PO PRN ×3 (08:39→18:03)
[2021-11-30] MEDS: METOPROLOL TARTRATE 25 MG TAB PO SCH ×2 (08:40→20:55)
[2021-11-30] MEDS: DOCUSATE SODIUM/SENNA 50/8.6MG TAB PO SCH ×2 (08:40→20:54)
[2021-11-30] MEDS: POLYETHYLENE (MIRALAX) 17 GM PACK PO SCH (08:41)
[2021-11-30] MEDS: LIDOCAINE 5% 1 PATCH TD SCH (08:41)
[2021-11-30] MEDS: ENOXAPARIN INJ 40 MG/0.4 ML SYR SQ SCH (08:41)
[2021-11-30] MEDS: DICLOFENAC SOD 1% GEL 100 GM TUBE EXT SCH ×2 (08:42→20:55)
--- NOTE | 2021-11-30 15:05 | Hospitalist Progress Note ---
Date of Service November 30, 2021 Assessment & Plan (1) Bilateral hip joint arthritis: Plan: Presented with left groin pain that goes up to the left knee. Tenderness on palpation of hip L>R yesterday but not appreciated today Pelvis x-ray did show moderate to severe bilateral hip arthritis but no fracture Seen by ortho- recommendations noted. ESR, CRP elevated. Continue pain management. Consider trial of oral steroids if not improving. Consider OP follow up for steroid injections consideration PT recommended rehab- informed CM Pain is minimally improved Will try diclofenac sodium over left greater trochanteric area Pain seems to be controlled as of today Has been accepted to [facility] We will discussed with the for the disposition (2) Left inguinal pain: Plan: History of left inguinal hernia surgery The pain is mostly secondary to hip arthritis Pain is controlled (3) Hypertension: Plan: stable, continue home medications (4) Hypothyroidism: Plan: Continue replacement (5) Memory deficit: Plan: No delirium (6) Hyperlipidemia: Plan: Continue supplement DVT prophylaxis- Subcu Lovenox Updated over the phone Dispo- PT recommends rehab- CM following. Stable to go to rehab. Has had a long discussion with the patient Strongly advised to participate in physical therapy Admission and Anticipated Discharge Date Admission Date: November 26, 2021 Subjective 11/29/2021 The patient was seen and examined in medical floor Still complains to have some pain in the left groin and left greater trochanteric bursa Seems a little better compared with the day of admission Will continue physical therapy 11/30/2021 The patient was seen and examined in medical floor He has been pleasantly confused but denies any acute distress or pain Has been getting physical therapy and is accepted to go to [facility] Review of Systems Review of Systems: All systems reviewed and are unremarkable except as noted below Musculoskeletal: Left hip pain and very tender left greater trochanteric area. Any movement of the left lower extremity caused severe pain in the left hip Physical Exam Physical Exam: Lying in bed with some distress secondary to left groin and hip pain Constitutional: well developed, well nourished, + ill appearing and + obese Eyes: PERRL, conjunctivae normal, anicteric sclerae ENMT: external ear and nose normal, oropharynx normal Neck: trachea midline, no thyromegaly Respiratory: no respiratory distress Auscultation: lungs clear to auscultation bilaterally Cardiovascular: Rate/Rhythm: regular rate and regular rhythm; not tachycardic Heart Sounds: normal S1 and normal S2; no murmur Extremities: no edema Gastrointestinal (Abdomen): Inspection/Auscultation: normal bowel sounds; abdomen not distended Percussion/Palpation: + abdomen tender (Tender in the left inguinal area with a small nodule/lymph node which is no) and abdomen soft Musculoskeletal: Hip: + joint line tenderness (Any movement of the left lower extremity caused severe pain in the left hip) Lymphatic: no cervical or axillary lymphadenopathy Results & Data Results & Data ([facility]) Vital Signs (Past 12 Hours) Vital Signs Temp Pulse Resp BP Pulse Ox O2 Del Method 11/30/21 07:19 36.6 C 71 16 138/65 95 Room Air Medications Administered Current Inpatient Medications Acetaminophen (Acetaminophen 325 Mg Tab) 650 mg PO Q6 [facility] Stop: 12/27/21 08:44 Last Admin: 11/30/21 12:45 Dose: 650 mg Diclofenac Sodium (Diclofenac Sod 1% Gel 100 Gm Tube) 2 gm EXT BID [facility]; Protocol Stop: 12/29/21 20:59 Last Admin: 11/30/21 08:42 Dose: 2 gm Enoxaparin Sodium (Enoxaparin Inj 40 Mg/0.4 Ml Syr) 40 mg SQ QAM [facility] Stop: 12/27/21 10:59 Last Admin: 11/30/21 08:41 Dose: 40 mg Lidocaine (Lidocaine 5% 1 Patch) 1 patch TD QAM [facility] Stop: 12/27/21 08:59 Last Admin: 11/30/21 08:41 Dose: 1 patch Metoprolol Tartrate (Metoprolol Tartrate 25 Mg Tab) 12.5 mg PO BID [facility] Stop: 12/26/21 20:59 Last Admin: 11/30/21 08:40 Dose: 12.5 mg Miscellaneous (Remove Lidoderm Patch) 1 each N/A DAILY@2100 [facility] Stop: 12/27/21 20:59 Last Admin: 11/29/21 20:34 Dose: 1 each Morphine Sulfate (Morphine Sulfate 4 Mg/Ml 1 Ml Carp\Vial) 4 mg IV Q6H PRN PRN Reason: sev pain if unable to take po Stop: 12/10/21 13:47 Last Admin: 11/27/21 11:45 Dose: 4 mg Oxycodone HCl (Oxycodone Hcl Ir 5 Mg Tab (Immediate Release)) 5 mg PO Q4 PRN PRN Reason: sev Pain Stop: 12/11/21 08:39 Last Admin: 11/30/21 13:21 Dose: 5 mg Polyethylene Glycol (Polyethylene (Miralax) 17 Gm Pack) 17 gm PO DAILY [facility] Stop: 12/28/21 18:44 Last Admin: 11/30/21 08:41 Dose: 17 gm Senna/Docusate Sodium (Docusate Sodium/Senna 50/8.6mg Tab) 1 tab PO BID [facility] Stop: 12/28/21 20:59 Last Admin: 11/30/21 08:40 Dose: 1 tab
[2021-12-01] MEDS: ACETAMINOPHEN 325 MG TAB PO SCH ×4 (00:28→18:12)
[2021-12-01] MEDS: LIDOCAINE 5% 1 PATCH TD SCH (08:53)
[2021-12-01] MEDS: ENOXAPARIN INJ 40 MG/0.4 ML SYR SQ SCH (08:53)
[2021-12-01] MEDS: METOPROLOL TARTRATE 25 MG TAB PO SCH ×2 (08:53→21:05)
[2021-12-01] MEDS: POLYETHYLENE (MIRALAX) 17 GM PACK PO SCH (08:53)
[2021-12-01] MEDS: DOCUSATE SODIUM/SENNA 50/8.6MG TAB PO SCH ×2 (08:54→21:05)
[2021-12-01] MEDS: DICLOFENAC SOD 1% GEL 100 GM TUBE EXT SCH ×2 (08:54→21:04)
--- NOTE | 2021-12-01 16:49 | Hospitalist Progress Note ---
Date of Service December 01, 2021 Assessment & Plan (1) Bilateral hip joint arthritis: Plan: Presented with left groin pain that goes up to the left knee. Tenderness on palpation of hip L>R yesterday but not appreciated today Pelvis x-ray did show moderate to severe bilateral hip arthritis but no fracture Seen by ortho- recommendations noted. ESR, CRP elevated. Continue pain management. Consider trial of oral steroids if not improving. Consider OP follow up for steroid injections consideration PT recommended rehab- informed CM Pain is minimally improved Will try diclofenac sodium over left greater trochanteric area Pain seems to be controlled as of today Has been accepted to [facility] Pain is reasonably controlled and he is getting physical therapy Discussed with the who wanted him to be in a skilled care facility Likely to be transferred on Saturday (2) Left inguinal pain: Plan: History of left inguinal hernia surgery The pain is mostly secondary to hip arthritis Pain is controlled (3) Hypertension: Plan: stable, continue home medications Remains on the upper side at 158/93 (4) Hypothyroidism: Plan: Continue replacement (5) Memory deficit: Plan: No delirium (6) Hyperlipidemia: Plan: Continue supplement DVT prophylaxis- Subcu Lovenox Updated over the phone Dispo- PT recommends rehab- CM following. Stable to go to rehab. Has had a long discussion with the patient Strongly advised to participate in physical therapy Awaiting placement to skilled care facility Admission and Anticipated Discharge Date Admission Date: November 26, 2021 Subjective 11/29/2021 The patient was seen and examined in medical floor Still complains to have some pain in the left groin and left greater trochanteric bursa Seems a little better compared with the day of admission Will continue physical therapy 11/30/2021 The patient was seen and examined in medical floor He has been pleasantly confused but denies any acute distress or pain Has been getting physical therapy and is accepted to go to [facility] 12/01/2021 The patient was seen and examined in medical floor He has been stable, pleasantly confused and without any acute distress Review of Systems Review of Systems: All systems reviewed and are unremarkable except as noted below Musculoskeletal: Left hip pain and very tender left greater trochanteric area. Any movement of the left lower extremity caused severe pain in the left hip Physical Exam Physical Exam: Sitting on a chair outside bed without any acute distress Constitutional: well developed, well nourished, + ill appearing and + obese Eyes: PERRL, conjunctivae normal, anicteric sclerae ENMT: external ear and nose normal, oropharynx normal Neck: trachea midline, no thyromegaly Respiratory: no respiratory distress Auscultation: lungs clear to auscultation bilaterally Cardiovascular: Rate/Rhythm: regular rate and regular rhythm; not tachycardic Heart Sounds: normal S1 and normal S2; no murmur Extremities: no edema Gastrointestinal (Abdomen): Inspection/Auscultation: normal bowel sounds; abdomen not distended Percussion/Palpation: + abdomen tender (Tender in the left inguinal area with a small nodule/lymph node which is no) and abdomen soft Musculoskeletal: Hip: + joint line tenderness (Any movement of the left lower extremity caused severe pain in the left hip) Neurologic: Alert and awake. Pleasantly confused. No aggressive behavior Psychiatric: Insight: + poor insight Lymphatic: no cervical or axillary lymphadenopathy Results & Data Results & Data ([facility]) Vital Signs (Past 12 Hours) Vital Signs Temp Pulse Resp BP BP Pulse Ox O2 Del Method 12/01/21 15:00 36.5 C 68 17 158/93 H 98 Room Air 12/01/21 08:52 55 L 133/67 12/01/21 07:13 36.9 C 60 17 126/70 97 Room Air, Oxymask
[2021-12-01] MEDS: oxyCODONE HCL IR 5 MG TAB (IMMEDIATE RELEASE) PO PRN (16:55)
[2021-12-02] MEDS: ACETAMINOPHEN 325 MG TAB PO SCH ×5 (00:12→23:40)
[2021-12-02] MEDS: METOPROLOL TARTRATE 25 MG TAB PO SCH ×2 (09:26→20:25)
[2021-12-02] MEDS: DOCUSATE SODIUM/SENNA 50/8.6MG TAB PO SCH ×2 (09:27→20:24)
[2021-12-02] MEDS: POLYETHYLENE (MIRALAX) 17 GM PACK PO SCH (09:27)
[2021-12-02] MEDS: DICLOFENAC SOD 1% GEL 100 GM TUBE EXT SCH ×2 (09:28→20:25)
[2021-12-02] MEDS: LIDOCAINE 5% 1 PATCH TD SCH (09:28)
[2021-12-02] MEDS: ENOXAPARIN INJ 40 MG/0.4 ML SYR SQ SCH (09:28)
--- NOTE | 2021-12-02 11:03 | Hospitalist Progress Note ---
Date of Service December 02, 2021 Assessment & Plan (1) Bilateral hip joint arthritis: Plan: Presented with left groin pain that goes up to the left knee. Pain is controlled with current regimen, continue Pelvis x-ray did show moderate to severe bilateral hip arthritis but no fracture Seen by ortho- recommendations noted. ESR, CRP elevated. Continue pain management. Consider trial of oral steroids if not improving. Consider OP follow up for steroid injections consideration PT recommended rehab- plan for center care on Saturday (2) Left inguinal pain: Plan: History of left inguinal hernia surgery The pain is mostly secondary to hip arthritis Pain is controlled (3) Hypertension: Plan: stable, continue home medications (4) Memory deficit: Plan: Stable, No delirium Plan DVT prophylaxis- Subcu Lovenox Dispo- PT recommends rehab- CM following. Stable to go to rehab. Plan for Center care on Saturday Admission and Anticipated Discharge Date Admission Date: November 26, 2021 Subjective No new issues. Pain is controlled. Remains pleasantly confused. No N/V/chest pain, shortness of breath. Physical Exam Physical Exam: General: Sitting in chair, not in acute distress, on room air HEENT: EOMI, JUDY, MMM Chest: Clear breath sounds bilaterally, no wheezes or crackles CVS: Regular rate and rhythm, normal heart sounds, no murmur Abdomen: Soft, non tender, not distended, normal bowel sounds Neuro: Awake, alert and conversing well Extremities: No edema, some tenderness around left greater trochanteric region on deep palpation Results & Data Results & Data ([facility]) Vital Signs (Past 12 Hours) Vital Signs Temp Pulse Resp BP BP Pulse Ox O2 Del Method 12/02/21 09:23 72 126/68 12/02/21 08:01 36.8 C 63 18 146/80 H 96 Nasal Cannula
[2021-12-02] MEDS: oxyCODONE HCL IR 5 MG TAB (IMMEDIATE RELEASE) PO PRN (20:22)
[2021-12-03] MEDS: oxyCODONE HCL IR 5 MG TAB (IMMEDIATE RELEASE) PO PRN (05:24)
[2021-12-03] MEDS: ACETAMINOPHEN 325 MG TAB PO SCH ×3 (05:24→18:15)
[2021-12-03] MEDS: DOCUSATE SODIUM/SENNA 50/8.6MG TAB PO SCH ×2 (08:31→21:56)
[2021-12-03] MEDS: ENOXAPARIN INJ 40 MG/0.4 ML SYR SQ SCH (08:32)
[2021-12-03] MEDS: DICLOFENAC SOD 1% GEL 100 GM TUBE EXT SCH ×2 (08:32→21:55)
[2021-12-03] MEDS: METOPROLOL TARTRATE 25 MG TAB PO SCH ×2 (08:33→21:56)
[2021-12-03] MEDS: POLYETHYLENE (MIRALAX) 17 GM PACK PO SCH (08:33)
[2021-12-03] MEDS: LIDOCAINE 5% 1 PATCH TD SCH (08:33)
--- NOTE | 2021-12-03 11:46 | Hospitalist Progress Note ---
Date of Service December 03, 2021 Assessment & Plan (1) Bilateral hip joint arthritis: Plan: Presented with left groin pain that goes up to the left knee. Pain is controlled with current regimen, continue Pelvis x-ray did show moderate to severe bilateral hip arthritis but no fracture Seen by ortho- recommendations noted. ESR, CRP elevated. Continue pain management. Consider trial of oral steroids if not improving. Consider OP follow up for steroid injections consideration PT recommended rehab- plan for center care on Saturday (2) Left inguinal pain: Plan: History of left inguinal hernia surgery The pain is mostly secondary to hip arthritis Pain is controlled (3) Hypertension: Plan: stable, continue home medications (4) Memory deficit: Plan: Stable, No delirium Plan DVT prophylaxis- Subcu Lovenox Dispo- PT recommends rehab- CM following. Stable to go to rehab. Plan for Center care on Saturday Admission and Anticipated Discharge Date Admission Date: November 26, 2021 Subjective Feels good. Denies any pain. No other issues. No N/V/chest pain, SOB. Physical Exam Physical Exam: General: Sitting in chair, not in acute distress, on room air HEENT: EOMI, JUDY, MMM Chest: Clear breath sounds bilaterally, no wheezes or crackles CVS: Regular, normal heart sounds, no murmur Abdomen: Soft, non tender, not distended, normal bowel sounds Neuro: Awake, alert and conversing well Extremities: No edema, some tenderness around left greater trochanteric region on deep palpation Results & Data Results & Data ([facility]) Vital Signs (Past 12 Hours) Vital Signs Temp Pulse Resp BP BP Pulse Ox O2 Del Method 12/03/21 08:30 57 L 126/54 L 12/03/21 07:30 36.7 C 67 18 122/68 97 Room Air
[2021-12-04] MEDS: ACETAMINOPHEN 325 MG TAB PO SCH ×3 (01:13→12:01)
[2021-12-04] MEDS: DOCUSATE SODIUM/SENNA 50/8.6MG TAB PO SCH (08:01)
[2021-12-04] MEDS: LIDOCAINE 5% 1 PATCH TD SCH (08:03)
[2021-12-04] MEDS: METOPROLOL TARTRATE 25 MG TAB PO SCH (08:04)
[2021-12-04] MEDS: POLYETHYLENE (MIRALAX) 17 GM PACK PO SCH (08:05)
[2021-12-04] MEDS: ENOXAPARIN INJ 40 MG/0.4 ML SYR SQ SCH (08:07)
[2021-12-04] MEDS: DICLOFENAC SOD 1% GEL 100 GM TUBE EXT SCH (08:07)
--- NOTE | 2021-12-04 11:26 | Discharge Summary ---
Date of Service December 04, 2021 Admission HPI Per Admitting Provider He is an 81-year-old male with significant past medical history of atherosclerotic cardiovascular disease, chronic kidney disease stage III, BPH, hyperlipidemia, memory changes apparently has been complaining of Left inguinal pain for a while. He has had surgery for the left Inguinal Hernia years ago and he thinks the hernia surgery site is bothering him. His pain was worse this morning that he could hardly ambulate. He has been trying Tylenol occasionally to control the pain. His pain is worse with movement and it goes down to the left knee joint and denies any problem with urine and or bowel habit. He does not have any arthritis involving other joint. He has had injection in the left greater trochanteric area but that did not help the pain in the past. X-ray of the pelvis did show moderate to severe osteoarthritis involving the hips worse on the left than the right. Admission Exam Per Admitting Provider Physical Exam: Lying in bed with some distress secondary to left groin and hip pain Constitutional: well developed, well nourished, + ill appearing and + obese Eyes: PERRL, conjunctivae normal, anicteric sclerae ENMT: external ear and nose normal, oropharynx normal Neck: trachea midline, no thyromegaly Respiratory: no respiratory distress Auscultation: lungs clear to auscultation bilaterally Cardiovascular: Rate/Rhythm: regular rate and regular rhythm; not tachycardic Heart Sounds: normal S1 and normal S2; no murmur Extremities: no edema Gastrointestinal (Abdomen): Inspection/Auscultation: normal bowel sounds; abdomen not distended Percussion/Palpation: + abdomen tender (Tender in the left inguinal area with a small nodule/lymph node which is no) and abdomen soft Musculoskeletal: Hip: + joint line tenderness (Any movement of the left lower extremity caused severe pain in the left hip) Neurologic: Alert, awake and oriented x3 Lymphatic: no cervical or axillary lymphadenopathy Principal Diagnosis Bilateral hip osteoarthritis Discharge Exam General: Sitting in chair, not in acute distress, on room air HEENT: EOMI, JUDY, MMM Chest: Clear breath sounds bilaterally, no wheezes or crackles CVS: Regular, normal heart sounds, no murmur Abdomen: Soft, non tender, not distended, normal bowel sounds Neuro: Awake, alert and conversing well Extremities: No edema, some tenderness around left greater trochanteric region on deep palpation Discharge Data 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 Consultations 11/26/21 10:29 ED Decision to Admit Stat 11/26/21 11:36 Consult Orthopedic Surgery Routine Ordered Studies 11/26/21 08:28 CT abd pelvis IV con only Stat Laboratory Results WBC 8.47 K/ul (4.8-10.8) 11/27/21 08:00 RBC 3.93 M/uL (4.63-6.08) L 11/27/21 08:00 Hgb 13.0 g/dl (14.0-18.0) L 11/27/21 08:00 Hct 38.2 % (40.1-51.0) L 11/27/21 08:00 MCV 97.2 fL (80.0-100.0) 11/27/21 08:00 MCH 33.1 pg (25.0-34.0) 11/27/21 08:00 MCHC 34.0 g/dL (32.0-36.0) 11/27/21 08:00 RDW Std Deviation 47.4 fL (36.4-46.3) H 11/27/21 08:00 RDW Coeff of [place] 13.2 % (11.5-14.5) 11/27/21 08:00 Plt Count 199 K/uL (130-400) 11/27/21 08:00 MPV 10.2 fL (9.4-12.4) 11/27/21 08:00 Immature Gran % (Auto) 0.4 % 11/27/21 08:00 Neut % (Auto) 82.3 % 11/27/21 08:00 Lymph % (Auto) 8.3 % 11/27/21 08:00 [place] % (Auto) 7.6 % 11/27/21 08:00 Eos % (Auto) 0.9 % 11/27/21 08:00 Baso % (Auto) 0.5 % 11/27/21 08:00 Neut # (Auto) 6.98 K/uL (1.4-6.5) H 11/27/21 08:00 Lymph # (Auto) 0.70 K/uL (1.2-3.4) L 11/27/21 08:00 [place] # (Auto) 0.64 K/uL (0.24-0.82) 11/27/21 08:00 Eos # (Auto) 0.08 K/uL (0-0.50) 11/27/21 08:00 Baso # (Auto) 0.04 K/uL (0-0.2) 11/27/21 08:00 Immature Gran # (Auto) 0.03 K/uL (0.00-0.02) H 11/27/21 08:00 ESR 39 mm/hr (0-20) H 11/27/21 08:00 Sodium 139 mmol/L (136-145) 11/27/21 08:00 Potassium 3.9 mmol/L (3.5-5.1) 11/27/21 08:00 Chloride 106 mmol/L (98-107) 11/27/21 08:00 Carbon Dioxide 27 mmol/L (21-32) 11/27/21 08:00 Anion Gap 6 (3-11) 11/27/21 08:00 BUN 28 mg/dl (6-23) H 11/27/21 08:00 Creatinine 0.95 mg/dl (0.6-1.4) 11/27/21 08:00 Est Cr Clr Drug Dosing 57.0 ml/min 11/27/21 08:00 Est GFR ( Amer) 85.5 ml/min 11/27/21 08:00 Est GFR (Non-Af Amer) 73.7 ml/min 11/27/21 08:00 BUN/Creatinine Ratio 29.5 (10-20) H 11/27/21 08:00 Glucose 162 mg/dl (70-99(Fasting)) H 11/27/21 08:00 Calcium 8.7 mg/dl (8.5-10.1) 11/27/21 08:00 Magnesium 1.9 mg/dl (1.7-2.4) 11/27/21 08:00 Total Bilirubin 0.7 mg/dl (0.2-1.0) 11/26/21 08:20 AST 17 U/L (13-39) 11/26/21 08:20 ALT 16 U/L (7-52) 11/26/21 08:20 Alkaline Phosphatase 76 U/L (34-104) 11/26/21 08:20 C-Reactive Protein 6.30 mg/dl (0-0.5) H 11/27/21 08:00 Total Protein 6.7 gm/dl (6.0-8.3) 11/26/21 08:20 Albumin 3.9 gm/dl (3.4-5.0) 11/26/21 08:20 Globulin 2.8 gm/dl (2.5-4.0) 11/26/21 08:20 Albumin/Globulin Ratio 1.4 (0.9-2) 11/26/21 08:20 Lipase 6 U/L (11-82) L 11/26/21 08:20 Urine Color Yellow 11/26/21 11:38 Urine Appearance Clear (Clear) 11/26/21 11:38 Urine pH 8.0 (4.5-7.5) H 11/26/21 11:38 Ur Specific [place] > 1.045 (1.000-1.030) H 11/26/21 11:38 Urine Protein Negative (Negative) 11/26/21 11:38 Urine Glucose (UA) Negative (Negative) 11/26/21 11:38 Urine Ketones 1+ (Negative) H 11/26/21 11:38 Urine Blood Negative (Negative) 11/26/21 11:38 Urine Nitrite Negative (Negative) 11/26/21 11:38 Urine Bilirubin Negative (Negative) 11/26/21 11:38 Urine Urobilinogen Negative (Negative) 11/26/21 11:38 Ur Leukocyte Esterase Negative (Negative) 11/26/21 11:38 SARS-CoV-2, RNA, NAAT NEGATIVE (NEGATIVE) 11/26/21 08:38 Impressions Abdomen/Pelvis CT 11/26/21 08:[address] WITH IV CONTRAST CT DOSE: 768.96 mGy.cm HISTORY: Left inguinal pain. TECHNIQUE: Multiaxial CT images of the abdomen and pelvis were performed following the use of intravenous contrast. A dose lowering technique was utilized adhering to the principles of ALARA. COMPARISON STUDY: None. FINDINGS: Suboptimal evaluation due to the motion artifact. The lung bases are essentially clear. No pneumoperitoneum. No pneumatosis. No acute fractures identified. Small fat-containing umbilical hernia. Degenerative changes noted within the lumbar spine. There are 2 hypodensities within the liver with the largest in the right hepatic lobe measuring 7.3 cm. These likely represent cysts. The gallbladder, pancreas, and adrenal glands are unremarkable. There are few punctate calcified granulomas within the spleen. Multiple bilateral peripelvic renal cysts. No renal or ureteral stones. No hydronephrosis. The main portal vein appears patent. Moderate calcified plaque within the normal caliber abdominal aorta. No retroperitoneal lymphadenopathy. No pelvic free fluid. Normal bladder. There is a tiny fat-containing right inguinal hernia. No bowel wall thickening or obstruction. Normal appendix. IMPRESSION: 1. No bowel wall thickening or obstruction. 2. Normal appendix. 3. No hydronephrosis. 4. Additional findings as described above. ACT 112: Negative or not required by law. Electronically signed by: Alfredo Acevedo M.D. 11/26/2021 9:58 AM Hip/Pelvis X-Ray 11/26/21 08:37 XR hip LT 2V w pelvis CLINICAL HISTORY: Left hip pain. COMPARISON: None FINDINGS: Sacroiliac joints and symphysis pubis are intact. No acute fracture within the pelvis or hips is identified. There is no evidence for avascular necrosis of the femoral heads. There is moderate to severe osteoarthritis of the bilateral hips with joint space narrowing and osteophytosis. No suspicious oss eous lesion is identified. IMPRESSION: 1. No acute fracture within the pelvis or hips. 2. Moderate to severe bilateral hip osteoarthritis. ACT 112: Negative or not required by law. Electronically signed by: Carmelo Galeana M.D. 11/26/2021 9:42 AM Hospital Course (1) Bilateral hip joint arthritis: Presented with left groin pain that goes up to the left knee. Pain is controlled with current regimen, continue tylenol, lidoderm patch, voltaren gel, oxy prn. F/u with ortho as OP Pelvis x-ray did show moderate to severe bilateral hip arthritis but no fracture Seen by ortho- recommendations noted. ESR, CRP elevated. Continue pain management. Consider trial of oral steroids if not improving. OP follow up with ortho for consideration of steroid injections PT recommended rehab- discharging to center care today (2) Left inguinal pain: History of left inguinal hernia surgery The pain is mostly secondary to hip arthritis Pain is controlled (3) Hypertension: stable, continue home medications (4) Memory deficit: Stable, No delirium Plan Spoke to Annalee over the phone and reviewed discharge plan including OP ortho follow up. States sinemet was tried by PCP for gait but made his gait worse and has since been discontinued. Total Time Total Time Spent Total Time Spent (In Minutes): 35 Discharge Plan Discharge Items Patient Disposition: Transfer [facility] Reason For Visit: right groin pain and hip pain Discharge Diagnosis: bilateral hip osteoarthritis Activity: Resume your previous activity Non-emergency contact: Primary Care Provider Call non-emergency contact if: you have any medication questions, your symptoms worsen and your pain is not controlled Follow-up/Referrals: Angelo Cano MD [Primary Care Provider] - Diet: Regular Addtl Attending Provider Instructions: continue pain medications as needed continue physical therapy If pain and ambulation is limited because of the arthritis, follow up with orthopedic doctor for consideration of steroid injection or hip replacement follow up with family doctor Pending Studies at Discharge: No Stand-Alone Forms: My [facility] [place] Skilled Items Patient informed of condition?: Yes DNR: No Discharge Level of Care: Skilled Communicable Disease: No Discharge Prognosis: Stable Lines: None Urinary Catheter: No Medications and DC Order Prescriptions: New acetaminophen 325 mg Tablet 650 mg PO Q6 Qty: 30 0RF oxycodone 5 mg Tablet 5 mg PO Q4 PRN (Reason: pain) Qty: 14 0RF diclofenac sodium [Voltaren Arthritis Pain] 1 % Gel 2 g EXT BID Qty: 50 0RF lidocaine 5 % Adhesive Patch,Medicated 1 patch transdermal QAM Qty: 30 0RF Continued aspirin 81 mg Tablet,Delayed Release (Dr/Ec) 81 mg PO DAILY Rx Instructions: take with food DHEA 50 mg Tablet 50 mg PO DAILY cholecalciferol (vitamin D3) [Vitamin D3] 25 mcg (1,000 unit) Tablet 25 mcg PO DAILY coQ10 (ubiquinol) 200 mg Capsule 200 mg PO DAILY metoprolol tartrate 25 mg tablet 12.5 mg PO BID cyanocobalamin (vitamin B-12) [Vitamin B-12] 1,000 mcg Tablet, Sublingual 1,000 mcg SUBLINGUAL DAILY omega-3 fatty acids 1,250 mg Capsule 1,250 mg PO DAILY vitamin E [Aquasol E (d-alpha tocopherol)] 268 mg (400 unit) Capsule 268 mg PO DAILY Probiotic Acidophilus 1.5 mg (250 million cell) Capsule 1,000 mmu cells PO BID Rx Instructions: not sure of strength atorvastatin 20 mg Tablet 20 mg PO QAM Qty: 30 0RF Discontinued carbidopa-levodopa 25-100 mg tablet 1 tab PO TID Rx Instructions: take at 5am,11am,4pm acetaminophen [Tylenol Arthritis] 650 mg Tablet Extended Release 650 mg PO Q8H PRN (Reason: Pain) Discharge Orders: Discharge Order (Routine); Ordered 12/04/21 Ordered By: Jeff Mtz Admission Data Admit Date/Time: 11/26/21 11:32 Attending Provider: Jeff Mtz Admit Provider: Kolton Mckeon Primary Care Provider: Angelo Cano Other Providers: Kolton Mckeon ; Jesus Pal ; Jeff Mtz ; [place],[facility] ; [facility]
== END 2021-12-04 13:55 | DRG 554 ==
LOC: ED 08:10 → SUATTDRO 11:32 → EDINP 11:32 → 3N 13:35

== ENCOUNTER 2023-12-13 18:53 | Inpatient (IN) ==
--- NOTE | 2023-12-13 19:08 | Emergency Department Note ---
Impression & Plan Generalized weakness, Ambulatory dysfunction ED Provider Note HISTORY OF PRESENT ILLNESS: Patient is an 83-year-old male presenting with generalized weakness. Patient presents from home. Patient is difficult to get a history from secondary to cognitive impairment. presents to bedside a little later and provides more history. Reports the patient has been having significant physical decline at home. He normally gets around with significant assistance by her. She reports she is having significant difficulties getting him up and around on their own. States that he normally uses a wheelchair when out and about, but has been having to use a wheelchair at home to help get him around to their home. reports that the patient seems very shaky today. Reports that she had difficulties getting up out of bed and off the couch. No reported fevers. No abdominal pain, nausea or vomiting. No reported diarrhea. No reported sick contact exposures. No recent changes in medications. No reported falls or head injuries. ROS: as above PHYSICAL EXAM: Constitutional: Patient appears in no acute distress. HENT: Head: Normocephalic and atraumatic. Eyes: EOMI, PERRL Mouth/Throat: Mucous membranes moist. Neck: Trachea midline. Neck supple. Cardiovascular: RRR, No murmurs, rubs or gallops. Intact distal pulses. Pulmonary/Chest: No respiratory distress. Breath sounds clear and equal bilaterally. No wheezes or rales. Abdominal: Abdomen soft, no tenderness, rebound or guarding. Musculoskeletal: No edema, tenderness or deformity noted. Skin: Warm and dry. No rash, erythema, pallor or cyanosis Neurological: Alert. CN II-XII grossly intact, moving all extremities equally and fully. MDM: - Vitals signs showed hypertension. - History obtained via patient's , given patient's confusion. History as above. - Chronic conditions affecting care: CAD (s/p PCI); dementia; Parkinson disease; CKD; HTN; HLD; hypothyroidism - Differential diagnoses include, but are not limited to: pneumonia; UTI; dysrhythmia; electrolyte abnormality; CVA; intracranial hemorrhage - Order placed for continuous cardiac monitoring. At this time, monitor showed rate of 85 bpm with normal sinus rhythm, per my interpretation. - External medical records reviewed. [facility] history and physical exam dated 09/05/2022 was reviewed. Patient was seen in general surgery clinic for assessment of his right inguinal hernia. - EKG interpreted by myself showed normal sinus rhythm. Rate 88 bpm. QT 374. No acute ischemic changes. - Laboratory workup interpreted by myself showed normal WBC; normal PT/INR; stable electrolytes; normal lactate; normal troponin; normal TSH - CXR negative for pneumonia, per my interpretation - UA negative for infection - CT head wo contrast negative for acute intracranial pathology. - Patient's reports inability to care for the patient at home given his weakness and shakiness. Will plan to admit to hospitalist for PT/OT assessment and potential placement. - Discussion was had with rn case manager about patient's case and need for admission - Hospitalist, Dr. Osei, consulted for admission - Patient admitted to [facility] service for further evaluation and management. ASSESSMENT AND PLAN: Diagnosis: generalized weakness; ambulatory dysfunction Plan: admit Past Med/Surg History Problem List (Updated 12/13/23 @ 21:16 by Mariela Cook MD) Ambulatory dysfunction (Acute) Generalized weakness (Acute) Encounter for pre-operative examination Bilateral hip joint arthritis Medical History Malignant hyperthermia Frequent PVCs CAD (coronary artery disease) s/p RCA stent 1994, hx stable class I-II angina pectoris, follows with [facility] cardio Bradycardia d/t chronic ventricular ectopy per [facility] cardio; on BB Carotid artery stenosis Dementia Parkinson disease CKD (chronic kidney disease) stage 3, GFR 30-59 ml/min BPH (benign prostatic hyperplasia) History of anesthesia reaction malignant hyperthermia susceptibility, RYR1 genetic mutation per [facility] records Hypothyroidism SOB (shortness of breath) on exertion Hypertension Hyperlipidemia Surgical History History of surgery "piece of tailbone taken off in 1970s" per PAT RN call History of left cataract surgery History of right cataract surgery History of hernia surgery History of esophagogastroduodenoscopy (EGD) History of colonoscopy History of foot surgery Previous back surgery X 2 History of cardiac cath s/p stenting of RCA in 1994, PAT private tutor call states patient also had additional stent placed > 30 yrs ago Social History Smoking Status: Unknown if ever smoked Second Hand Exposure: No; Do You Dip or Chew Tobacco: No; Hx Substance Use: No Preferred Language: Persian Communication Ability: Impaired Communication Ability Comment: PT HAS MEMORY PROBLEM/ DOES PHONE CALL AND SIGNS CONSENTS. [employer] Mail Carrier Required: No Beliefs That Will Affect Care: None marital status: Current Living Situation: Spouse and Family Current Living Situation Comment: SON LIVES WITH US How many Children do You have: 1 Feels Safe at Home: Yes Assistive Devices: Cane, Hearing Aid - Bilateral and Walker Allergies Allergies Allergy/AdvReac Type Severity Reaction Status Date / Time halothane Allergy Unknown susceptibility Verified 12/13/23 21:18 to malignant hyperthermia succinylcholine Allergy Unknown susceptiblitiy Verified 12/13/23 21:18 to malignant hyperthermia Home Meds Home Medications Medication Instructions Recorded Confirmed acetaminophen 325 mg tablet 325 - 650 mg PO QID PRN Pain 12/13/23 12/13/23 (Tylenol) aspirin 81 mg tablet,delayed 81 mg PO DAILY 12/13/23 12/13/23 release atorvastatin 20 mg tablet 20 mg PO DAILY 12/13/23 12/13/23 isosorbide mononitrate 30 mg 30 mg PO QAM 12/13/23 12/13/23 tablet,extended release 24 hr metoprolol tartrate 25 mg tablet 12.5 mg PO QAM 12/13/23 12/13/23 Results & Data (ED) Vital Signs Vital Signs - 24 hr 12/13/23 18:59 12/13/23 19:01 12/13/23 19:13 Temperature 36.6 C Temperature Source Oral Pulse Rate 91 H 94 H Pulse Rate [Apical] Respiratory Rate 19 Blood Pressure 141/87 H Blood Pressure [Right Arm] Blood Pressure Mean 105 Blood Pressure Mean [Right Arm] Pulse Oximetry 94 94 Oxygen Delivery Method Room Air Room Air Sepsis Recent Fever Within 48 Hours No Sepsis New/Unexplained Change in Mental Status No Sepsis Action Taken by Nursing No Action Required 12/13/23 20:23 Temperature Temperature Source Pulse Rate Pulse Rate [Apical] 85 Respiratory Rate 22 Blood Pressure Blood Pressure [Right Arm] 145/89 H Blood Pressure Mean Blood Pressure Mean [Right Arm] 107 Pulse Oximetry 96 Oxygen Delivery Method Sepsis Recent Fever Within 48 Hours Sepsis New/Unexplained Change in Mental Status Sepsis Action Taken by Nursing Laboratory Data 12/13/23 19:06 12/13/23 19:06 Lab Results 12/13/23 12/13/23 Range/Units 19:06 20:42 WBC 8.46 (4.8-10.8) K/ul RBC 4.17 L (4.70-6.10) M/uL Hgb 13.4 L (14.0-18.0) g/dl Hct 40.5 L (42.0-52.0) % MCV 97.1 (80.0-100.0) fL MCH 32.1 (25.0-34.0) pg MCHC 33.1 (32.0-36.0) g/dL RDW Std Deviation 46.5 H (36.4-46.3) fL RDW Coeff of [place] 12.9 (11.5-14.5) % Plt Count 275 (130-400) K/uL MPV 9.7 (9.4-12.4) fL Immature Gran % (Auto) 0.4 % Neut % (Auto) 72.1 % Lymph % (Auto) 15.7 % [place] % (Auto) 9.5 % Eos % (Auto) 1.7 % Baso % (Auto) 0.6 % Neut # (Auto) 6.11 (1.40-6.50) K/uL Lymph # (Auto) 1.33 (1.20-3.40) K/uL Alcorn # (Auto) 0.80 H (0.11-0.59) K/uL Eos # (Auto) 0.14 (0.00-0.50) K/uL Baso # (Auto) 0.05 (0.00-0.20) K/uL Immature Gran # (Auto) 0.03 (0.01-0.20) K/uL PT 11.2 (9.0-12.0) Seconds INR 1.0 (0.9-1.1) Sodium 139 (136-145) mmol/L Potassium 4.0 (3.5-5.1) mmol/L Chloride 107 (98-107) mmol/L Carbon Dioxide 23 (21-32) mmol/L Anion Gap 9 (3-11) BUN 32 H (6-23) mg/dl Creatinine 0.92 (0.6-1.4) mg/dl Est Cr Clr Drug Dosing 64.4 ml/min Est GFR ( Amer) 87.6 ml/min Est GFR (Non-Af Amer) 75.6 ml/min BUN/Creatinine Ratio 34.8 H (10-20) Glucose 109 H (70-99(Fasting)) mg/dl Lactate 1.3 (0.4-2.0) mmol/L Calcium 9.3 (8.6-10.3) mg/dl Magnesium 2.0 (1.7-2.4) mg/dl Total Bilirubin 0.6 (0.2-1.0) mg/dl AST 14 (13-39) U/L ALT 13 (7-52) U/L Alkaline Phosphatase 82 (34-104) U/L Troponin I High Sens 7.9 (0-20) pg/ml Total Protein 7.1 (6.0-8.3) gm/dl Albumin 3.8 (3.4-5.0) gm/dl Globulin 3.3 (2.5-4.0) gm/dl Albumin/Globulin Ratio 1.2 (0.9-2) TSH 2.487 (0.300-4.500) uIu/ml Urine Color Yellow Urine Appearance Clear (Clear) Urine pH 5.5 (4.5-7.5) Ur Specific [place] 1.030 (1.000-1.030) Urine Protein 1+ H (Negative) Urine Glucose (UA) Negative (Negative) Urine Ketones Trace H (Negative) Urine Blood Negative (Negative) Urine Nitrite Negative (Negative) Urine Bilirubin Negative (Negative) Urine Urobilinogen Negative (Negative) Ur Leukocyte Esterase Negative (Negative) Urine WBC (Auto) 0-5 (0-5) /hpf Urine RBC (Auto) 0-2 (0-2) /hpf U Hyaline Cast (Auto) 0-2 (0-2) /lpf U Epithel Cells (Auto) 0-2 (0-2) /hpf Urine Bacteria (Auto) None Seen (None Seen) Imaging Data Radiologist's Impression: Head CT 12/13/23 19:06 Exam(s): CT HEAD Without Contrast EXAM: CT Head Without Intravenous Contrast CLINICAL HISTORY: Reason for exam: weakness. TECHNIQUE: Axial computed tomography images of the head/brain without intravenous contrast. CTDI is 38.55 mGy and DLP is 624.41 mGy-cm. Automated exposure control was utilized for the study. A dose lowering technique was utilized adhering to the principles of ALARA. COMPARISON: 05/09/23 FINDINGS: Brain: Generalized parenchymal volume loss. Periventricular and deep cerebral white matter hypoattenuation suggesting chronic small vessel ischemic change. Deshpande-white matter differentiation maintained. No hemorrhage, mass effect, parenchymal edema, or midline shift. Ventricles: Unremarkable. No hydrocephalus. Bones/joints: Unremarkable. No acute fracture. Soft tissues: Unremarkable. Vasculature: Intracranial atherosclerosis. Sinuses: Unremarkable as visualized. Mastoid air cells: Unremarkable as visualized. No mastoid effusion. Orbits: Lens replacements. IMPRESSION: No acute intracranial process. Electronically signed by: Saleem Velasquez M.D. 12/13/23 21:15 PM Discharge Plan Visit Data Chief Complaint: Illness Stated Complaint: Illness ED Provider: Mariela Cook Discharge Problem: Generalized weakness, Ambulatory dysfunction Forms Stand Alone Forms: My [facility] Prescriptions Prescriptions: No Action acetaminophen [Tylenol] 325 mg Tablet 325 - 650 mg PO QID PRN (Reason: Pain) atorvastatin 20 mg tablet 20 mg PO DAILY isosorbide mononitrate 30 mg tablet extended release 24 hr 30 mg PO QAM aspirin [Aspir-Low] 81 mg Tablet,Delayed Release (Dr/Ec) 81 mg PO DAILY metoprolol tartrate 25 mg tablet 12.5 mg PO QAM Referrals Referrals: Angelo Cano MD [Primary Care Provider] -
[2023-12-13 19:22] LABS: Basophils # (auto) 0.05 K/uL (0.00-0.20); Basophils % (auto) 0.6 %; Eosinophils # (auto) 0.14 K/uL (0.00-0.50); Eosinophils % (auto) 1.7 %; Hematocrit (blood only) 40.5 % (42.0-52.0); Hemoglobin 13.4 g/dl (14.0-18.0); Immature Granulocytes # (auto) 0.03 K/uL (0.01-0.20); Immature Granulocytes % (auto) 0.4 %; Lymphocytes # (auto) 1.33 K/uL (1.20-3.40); Lymphocytes % (auto) 15.7 %; Mean Corpuscular Hemoglobin 32.1 pg (25.0-34.0); Mean Corpuscular Hgb Conc 33.1 g/dL (32.0-36.0); Mean Corpuscular Volume 97.1 fL (80.0-100.0); Mean Platelet Volume 9.7 fL (9.4-12.4); Monocytes % (auto) 9.5 %; Neutrophils # (auto) 6.11 K/uL (1.40-6.50); Neutrophils % (auto) 72.1 %; Platelet Count 275 K/uL (130-400); RDW Coefficient of Variation 12.9 % (11.5-14.5); RDW Standard Deviation 46.5 fL (36.4-46.3); Red Blood Count 4.17 M/uL (4.70-6.10); White Blood Count 8.46 K/ul (4.8-10.8)
[2023-12-13 19:46] LABS: Prothrombin Time 11.2 Seconds (9.0-12.0)
[2023-12-13 19:57] LABS: Bilirubin,Total 0.6 mg/dl (0.2-1.0)
[2023-12-13 20:00] LABS: Albumin Level 3.8 gm/dl (3.4-5.0); BUN Creatinine Ratio 34.8 (10-20); Calcium 9.3 mg/dl (8.6-10.3); Creatinine Clr Calc Pharmacy 64.4 ml/min; Est GFR (African American) 87.6 ml/min; Est GFR (Non-African American) 75.6 ml/min
[2023-12-13 20:03] LABS: Albumin Globulin Ratio 1.2 (0.9-2); Globulin 3.3 gm/dl (2.5-4.0); Total Protein 7.1 gm/dl (6.0-8.3)
--- OUTSIDE RECORDS SUMMARY | 2023-12-13 20:17 | External Medical Summary | Summary of Care ---
Author Name Unknown Organization [facility] Address [address] [place] [address] Phone [phone] Care Team Providers Care Home Sales Consultant Name Role Phone Angelo Cano MD Primary Care Provider [phone]- [phone] Reason for Visit * Reason Comments Status Check Encounter Details Date Type Department Care Team (Latest Contact Info) Description 11/01/2023 2:40 PM EDT Office Visit [facility] [address] [place] [address] Angelo Cano MD [address] [place] [address] Memory changes*; Dyslipidemia, goal LDL below 70; ASCVD (arteriosclerotic cardiovascular disease); BPH with obstruction/lower urinary tract symptoms; Chronic kidney disease, stage 3a (HCC) Allergies Active Allergy Reactions Criticality Noted Date Comments Halothane 09/12/2021 MyCode result, 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 100 0 07/19/2005 Active B-12 3000 MCG SL SUBLIndications:Ches t pain Place 1,000 mcg under the tongue. Active Coenzyme Q10 200 MG CapsuleIndications:D yslipidemia, goal LDL below 70 Take by mouth. 1 Cap 0 03/24/2014 Active Calcium Carbonate Antacid 500 MG Oral Tablet Chewable Take 1 Tablet by mouth as needed. 1 Tab 08/23/2017 Active Lactobacillus (PROBIOTIC ACIDOPHILUS) TABS Take 1 Tab by mouth 2 times a day. Active NATURAL SUPPLEMENTIndication s:ADK 10; DIMSGS Take by mouth daily. Takes ADK 5 Indications: ADK 10; DIMSGS Active DHEA 10 MG CAPS Take 50 mg by mouth daily. Active vitamin e (AQUASOL E) 400 UNIT Capsule Take 200 Units by mouth daily. Active Cholecalciferol (VITAMIN D3) 25 MCG TABS Take 1 Tablet by mouth in the morning. Active aspirin 81 MG chewable tablet Take 1 Tablet by mouth in the morning. with food.. 100 Tab 5 09/18/2019 Active Acetaminophen 325 MG Oral Tablet (Tylenol) Take 1-2 Tablets by mouth every 6 hours as needed. Active Metoprolol Tartrate 25 MG Oral Tablet (Lopressor)Indicatio ns:Occlusion and stenosis of bilateral carotid arteries TAKE 1/2 TABLET BY MOUTH TWICE A DAY 90 Tablet 3 11/08/2022 Active Additional Information Patient taking differently: 12.5 mg Oral Daily(AM), Reported on 06/03/2023 Isosorbide Mononitrate ER 30 MG Oral Tablet Extended Release 24 Hour (Imdur)Indications:H eart palpitations TAKE 1 TABLET BY MOUTH EVERY DAY IN THE MORNING 90 Tablet 3 01/08/2023 Active Atorvastatin Calcium 20 MG Oral Tablet (Lipitor)Indications :Dyslipidemia, goal LDL below 70 TAKE 1 TABLET BY MOUTH EVERY DAY 90 Tablet 3 05/20/2023 Active Zinc 50 MG Oral Tablet Take 1 Tablet by mouth in the morning. Active Memantine HCl 5 MG Oral Tablet (Namenda)Indications :Parkinsonism, unspecified Parkinsonism type (HCC),Dementia associated with other underlying disease, without behavioral disturbance, psychotic disturbance, mood disturbance, or anxiety, unspecified dementia severity (HCC),Memory loss TAKE 1 TABLET BY MOUTH 2 TIMES A DAY WITH MORNING AND EVENING MEALS 60 Tablet 5 09/19/2023 Active Additional Information Patient not taking.Reported on 11/01/2023 documented as of this encounter (statuses as of 11/18/2023) Active Problems Problem Noted Date Diagnosed Date Chronic kidney disease, stage 3a 08/13/2022 Overview: Per CKD protocol 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 Increased risk for Malignant Hyperthermia Susceptibility. Please click the link below into your browser for a brief summary of current clinical management recommendations for Malignant Hyperthermia Susceptibility RYR1 Lightheadedness 11/09/2019 Memory changes 08/23/2017 Dyslipidemia, goal LDL below 70 06/21/2015 Dizziness 12/20/2014 BPH with obstruction/lower urinary tract symptom s 12/20/2014 ASCVD (arteriosclerotic cardiovascular disease) 10/08/2011 documented as of this encounter (statuses as of 11/18/2023) Resolved Problems Problem Noted Date Diagnosed Date Resolved Date Kidney disease, chronic, sta ge III (GFR 30-59 ml/min) 08/26/2017 08/16/2022 Overview: Per CKD protocol Prediabetes 06/18/2017 08/23/2017 Overview: Per Prediabetes protocol #1 Bilateral hip pain 08/13/2016 8 Trochanteric bursitis, left hip 02/08/2016 08/13/2016 Shortness of breath 02/08/2016 08/14/19 17 Urgency of urination 02/08/2016 018 Urinary hesitancy 02/08/2016 08/23/2017 Post-traumatic headache, not intractable 09/19/2015 08/13/2016 Cervicalgia 09/19/2015 08/23/2017 Primary osteoarthritis of hips, bilateral 09/19/2015 08/13/2016 Memory loss 09/19/2015 08/13/2016 Dermatitis 12/20/2014 09/19/2015 Fatigue 10/20/2014 09/19/2015 Greater trochanteric bursitis of both hips 10/20/2014 08/23/2017 Cataract 05/04/2014 08/13/2016 Overview: os Preop examination 05/04/2014 09/19/2015 Lumbago 05/04/2014 08/13/2016 Backache 05/12/2012 09/19/2015 Need for shingles vaccine 05/12/2012 Screen for colon cancer 05/12/201209/03 Dyslipidemia, goal LDL below 70 10/08/2011 10/20/2014 Sciatica 12/16/2009 09/19/2015 Dyslipidemia, goal LDL below 100 04/19/2009 10/08/2011 Overview: Per Lipid Taxonomy. Screening for prostate cancer 01/03/2009 01/27/2009 Overview: Modified by Screening Dx Protocol #6. Pulsatile tinnitus 04/08/2008 6 NUMBNESS, TOES 01/14/2008 09/19/2015 Dysfunction of eustachian tube 08/08/2007 09/19/2015 PAIN IN LIMB, LEFT ANKLE. 10/15/2006 Impotence of organic origin 10/15/2006 08/13/2016 ADVANCE DIRECTIVE INFORMATION 11/23/2005 09/19/2015 Overview: No, Advance Directive brochure given to patient at prior appointment. ASCVD 06/20/2005 10/08/2011 Dyslipidemia, goal to be determined 06/20/2005 04/19/2009 Overview: Per Lipid Taxonomy. LUMBAGO 06/20/2005 09/19/2015 FAM HX-DIABETES MELLITUS 06/20/2005 Family history of ischemic heart disease 06/20/2005 09/19/2015 ROUTINE MEDICAL EXAM 06/20/2005 016 Screening for prostate cancer 06/20/2005 07/14/2008 Overview: Resolved per Screening Diagnosis Protocol #6 DISC DIS W MYELOPATH NOS 06/20/200502/2017 NASAL ULCERATION 06/20/2005 09/19/2015 Spasm of muscle 06/20/2005 09/19/2015 Dyslipidemia, goal LDL below 100 06/21/2015 Overview: lipitor documented as of this encounter (statuses as of 11/18/2023) Immunizations Name Administration Dates Next Due Pneumococcal Conjugate Vacc, 13 Valent (Prevnar) 09/11/2018 Pneumococcal Polysaccharide PPV23 (Pneumovax) 03/06/2006 Seasonal Influenza, Split, I IV3, With Preserve, Inj 01/13/2015,01/12/2014,01/26/2013,02/25,01/31/2011,01/30/2010,01/24/2009 ,02/23/2008,02/12/2007,03/06/2006 TD, Preservative Free 02/23/2008 TDAP (age 10 and older)(Boostrix) 09/11/2018 documented as of this encounter Social History Tobacco Use Types Packs/Day Years Used Date Smoking Tobacco: Former Cigarettes 1 4 0 05/06/1961 - 05/06/1965 Smokeless Tobacco: Never Tobacco Cessation:Counseling Given: Not Answered Alcohol Use Standard Drinks/Week Comments Not Currently 0 (1 standard drink = 0.6 oz pur e alcohol) 1 glass of wine daily PHQ-2 Answer Date Recorded PHQ-2 Score 0 09/11/2018 Hunger Vital Sign Answer Date Recorded Worried About Running Out of Food in the Last Ye ar Never true 09/18/2019 Ran Out of Food in the Last Year Never true 09/18/2019 Utilities Answer Date Recorded Do you have trouble paying y our heating, water, or electric bill? (Adult - for ages 18 years and over) Not on file 10/22/2023 Is your family able to pay t he heat, water, or electric bill? (Household - for ages 0-17 years) Not on file 10/22/2023 Does your family have access to good internet? (Household - for ages 0-17 years) Not on file 10/22/2023 Social Connections Answer Date Recorded How often do you feel lonely or isolated from those around you? (Adult - for ages 18 years and over) Not on file 10/22/2023 Sex and Gender Information Value Date Recorded Sex Assigned at Male 09/11/2018 8:24 AM EDT Gender Identity Male 09/11/2018 8:24 AM EDT Sexual Orientation Straight 09/11/2018 8: 24 AM EDT Job Start Date Occupation Industry Not on file Not on file Not on file documented as of this encounter Last Filed Vital Signs Vital Sign Reading Time Taken Comments Blood Pressure 130/74 11/01/2023 2:41 PM EDT Pulse 80 11/01/2023 2:41 PM EDT Temperature 36.9 C (98.4 F) 11/01/2023 2:41 PM ED T Respiratory Rate 16 11/01/2023 2:41 PM EDT Oxygen Saturation 98% 11/01/2023 2:41 PM EDT Inhaled Oxygen Concentration - - Weight 90.7 kg (200 lb) 11/01/2023 2:41 PM EDT Height - - Body Mass Index 30.41 04/23/2023 2:31 PM EST documented in this encounter Progress Notes * Angelo Cano MD - 11/18/2023 8:13 PM EDT Subjective: Harsha Shin is a 83 year old male here today for Chief Complaint Patient presents with Status Check Past Medical History: Diagnosis Date ASCVD (arteriosclerotic cardiovascular disease) Dyslipidemia, goal LDL below 100 1994 lipitor Hearing loss Hypertension INFORMATION nose ulcer Lumbago Mild memory disturbance 08/23/2017 Past Surgical History: Procedure Laterality Date CATHETERIZE LEFT HEART THRU SKIN Cardiac Catheterization, Left Heart COLONOSCOPY 08/31/2002 [facility]- repeated in 10years CORONARY ARTERY DILATION, BALLOON prox RCA x 2 DENTAL SURGERY PROCEDURE NEC 1960s 4 wsidom teeth INFORMATION 05/06/1970 coccyx removed INFORMATION 1970s right foot heel surgery LUMBAR SPINE FUSION, POST INTERBODY 05/06/1976 lumbar laminecttomy--L5-Lumbar Spine Fusion ,Post Interbody PROCEDURE - GENERAL Right 10/04/2022 right inguinal hernia repair by Dr Sallie Pierce REMOVAL OF TONSILS, UNDER AGE 12 as a child Tonsils Removal,<12 Y/O REMOVE CATARACT, INSERT LENS PROSTH Right 04/06/2014 Cataract extraction SACROILIAC JOINT INJECT W/GUIDANCE 01/11/2021 INJECTION SACROILIAC JOINT performed by Jose Whitlock, DO at OR [facility] STRESS TREADMILL 05/06/2002 Cardiovascular Stress Test VASECTOMY 05/06/1971 Review of patient's allergies indicates: Allergen Reactions Halothane MyCode result, 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 100 0 B-12 [address] 1,000 mcg under the tongue. Coenzyme Q10 200 MG Capsule Take by mouth. 1 Cap 0 Calcium Carbonate Antacid 500 MG Oral Tablet Chewable Take 1 Tablet by mouth as needed. 1 Tab 0 Lactobacillus (PROBIOTIC ACIDOPHILUS) TABS Take 1 Tab by mouth 2 times a day. NATURAL SUPPLEMENT Take by mouth daily. Takes ADK 5 Indications: ADK 10; DIMSGS DHEA 10 MG CAPS Take 50 mg by mouth daily. vitamin e (AQUASOL E) 400 UNIT Capsule Take 200 Units by mouth daily. Cholecalciferol (VITAMIN D3) 25 MCG TABS Take 1 Tablet by mouth in the morning. aspirin 81 MG chewable tablet Take 1 Tablet by mouth in the morning. with food.. 100 Tab 5 Acetaminophen 325 MG Oral Tablet (Tylenol) Take 1-2 Tablets by mouth every 6 hours as needed. Metoprolol Tartrate 25 MG Oral Tablet (Lopressor) TAKE 1/2 TABLET BY MOUTH TWICE A DAY (Patient taking differently: Take 0.5 Tablets by mouth in the morning.) 90 Tablet 3 Isosorbide Mononitrate ER 30 MG Oral Tablet Extended Release 24 Hour (Imdur) TAKE 1 TABLET BY MOUTHEVERY DAY IN THE MORNING 90 Tablet 3 Atorvastatin Calcium 20 MG Oral Tablet (Lipitor) TAKE 1 TABLET BY MOUTH EVERY DAY 90 Tablet 3 Zinc 50 MG Oral Tablet Take 1 Tablet by mouth in the morning. Memantine HCl 5 MG Oral Tablet (Namenda) TAKE 1 TABLET BY MOUTH 2 TIMES A DAY WITH MORNING AND EVENING MEALS (Patient not taking: Reported on 11/01/2023) 60 Tablet 5 No current facility-administered medications for this visit. Objective: BP 130/74 | Pulse 80 | Temp 36.9 C (98.4 F) (Infrared ) | Resp 16 | Wt 90.7 kg (200 lb) | SpO2 98% | BMI 30.41 kg/m | BSA 2.09 m GEN: NAD HEENT: Benign NECK: Supple with no LAD, TM, JVD CHEST: CTA B CV: RRR ABD: Soft, NT/ND, No HSM, NABS EXT: No c,c,e Assessment and Plan: Memory changes (Primary) Dyslipidemia, goal LDL below 70 ASCVD (arteriosclerotic cardiovascular disease) BPH with obstruction/lower urinary tract symptoms Chronic kidney disease, stage 3a (HCC) Follow Up: Return in about 6 months (around 05/02/2024) for recheck. | For: recheck 27 min with pt and chart review Angelo Cano MD documented in this encounter Nursing Notes * Ciara Smart LPN - 11/01/2023 2:41 PM EDT The patient has been properly identified by confirmation of name and date of . Chief Complaint Patient presents with Status Check Return visit Stopped taking Namenda-didn't seem like it was helping. documented in this encounter Plan of Treatment Upcoming Encounters Date Type Department Care Team (Late st Contact Info) Description 01/07/2024 4:20 PM EDT Office Visit [facility] [address] [facility] [place] [address] Jacob Barnett, DO [address] [facility] [place] [address] 05/19/2024 6:20 PM EST Office Visit [facility] [address] [place] [address] Angelo Cano MD [address], [place] [id number] Health Maintenance Due Date Last Done Comments Zoster Vaccines (1 of 2) 1988 Depression Screening 09/12/2019 09/11/2018, 08/13/2016 (Discussed) CKD PHOS USE SMARTSET 33209 07/21/202307/04, 04/05/2021, 11/02/2019 CKD HGB USE SMARTSET 95230 10/03/202310/02, 07/20/2022, 04/05/2021, Additional history exists Influenza Vaccine (FLU shot) (#1) 2024 01/13/2015, 01/12/2014, 01/26/2013, Additional history exists Albumin/Creatinine Ratio 04/23/2024 04/23/2023, 05/2021 DTaP,Tdap,and Td Vaccines (2 - Td or Tdap) 09/11/2028 09/11/2018, 02/23/2008 Pneumococcal Vaccine: 65+ Years Completed 09/11/2018, 03/06/2006 COVID-19 Vaccine Discontinued HPV (Gardasil) Vaccine Aged Out No lo nger eligible based on patient's age to complete this topic Hepatitis B Vaccine Aged Out No longe r eligible based on patient's age to complete this topic MENINGOCOCCAL (MENACTRA/MENVEO) Aged Out No longer eligible based on patient's age to complete this topic documented as of this encounter Medical Devices Not on filedocumented as of this encounter Visit Diagnoses Diagnosis Memory changes- Primary Memory loss Dyslipidemia, goal LDL below 70 Other and unspecified hyperlipidemia ASCVD (arteriosclerotic cardiovascular disease) Unspecified cardiovascular disease BPH with obstruction/lower urinary tract symptoms Hypertrophy of prostate with urinary obstruction and other lower urinary tract symptoms (LUTS) Chronic kidney disease, stage 3a (HCC) documented in this encounter Care Teams Home Sales Consultant Relationship Specialty Start Date End Date Angelo Cano MD [address] [place] [address] PCP - General Family Medicine 04/24/18 documented as of this encounter"
--- OUTSIDE RECORDS SUMMARY | 2023-12-13 20:17 | External Medical Summary | Summary of Care ---
Author Name Unknown Organization [facility] Address [address] [place] [address] Phone [phone] Care Team Providers Care Brewery Representative Name Role Phone Angelo Cano MD Primary Care Provider [phone] Reason for Visit * Reason Comments eRx-Medication Refill Encounter Details Date Type Department Care Team (Late st Contact Info) Description 09/16/2023 Refill Neurology [facility] [address] [place] [id number] Jacob Barnett, DO [address] [place] [id number] Parkinsonism, unspecified Parkinsonism type (HCC); Dementia associated with other underlying disease, without behavioral disturbance, psychotic disturbance, mood disturbance, or anxiety, unspecified dementia severity (HCC); Memory loss Allergies Active Allergy Reactions Criticality Noted Date Comments Halothane 09/12/2021 MyCode result, genetic susceptibility to Malignant Hyperthermia Succinylcholine 09/12/2021 MyCode result, genetic susceptibility to Malignant Hyperthermia documented as of this encounter (statuses as of 09/19/2023) Medications Medication Sig Dispensed Refills Start Date End Date Status Hampton-3 Fatty Acids (FISH OIL) 1200 MG CAPS Take 1,250 mg by mouth. 100 0 07/19/2005 Active B-12 3000 MCG SL SUBLIndications:C hest pain Place 1,000 mcg under the tongue. 0 Active Coenzyme Q10 200 MG CapsuleIndication s:Dyslipidemia, goal LDL below 70 Take by mouth. 1 Cap 0 03/24/2014 Active Calcium Carbonate Antacid 500 MG Oral Tablet Chewable Take 1 Tablet by mouth as needed. 1 Tab 0 08/23/2017 Active Lactobacillus (PROBIOTIC ACIDOPHILUS) TABS Take 1 Tab by mouth 2 times a day. 0 Active NATURAL SUPPLEMENTIndicat ions:ADK 10; DIMSGS Take by mouth daily. Takes ADK 5 Indications: ADK 10; DIMSGS 0 Active DHEA 10 MG CAPS Take 50 mg by mouth daily. 0 Active vitamin e (AQUASOL E) 400 UNIT Capsule Take 200 Units by mouth daily. 0 Active Cholecalciferol (VITAMIN D3) 25 MCG TABS Take 1 Tablet by mouth in the morning. 0 Active aspirin 81 MG chewable tablet Take 1 Tablet by mouth in the morning. with food.. 100 Tab 5 09/18/2019 Active Acetaminophen 325 MG Oral Tablet (Tylenol) Take 1-2 Tablets by mouth every 6 hours as needed. 0 Active Metoprolol Tartrate 25 MG Oral Tablet (Lopressor)Indica tions:Occlusion and stenosis of bilateral carotid arteries TAKE 1/2 TABLET BY MOUTH TWICE A DAY 90 Tablet 3 11/08/2022 Active Additional Information Patient taking differently: 12.5 mg Oral Daily(AM), Reported on 06/03/2023 Isosorbide Mononitrate ER 30 MG Oral Tablet Extended Release 24 Hour (Imdur)Indication s:Heart palpitations TAKE 1 TABLET BY MOUTH EVERY DAY IN THE MORNING 90 Tablet 3 01/08/2023 Active Atorvastatin Calcium 20 MG Oral Tablet (Lipitor)Indicati ons:Dyslipidemia, goal LDL below 70 TAKE 1 TABLET BY MOUTH EVERY DAY 90 Tablet 3 05/20/2023 Active Zinc 50 MG Oral Tablet Take 1 Tablet by mouth in the morning. 0 Active Memantine HCl 5 MG Oral Tablet (Namenda)Indicati ons:Parkinsonism, unspecified Parkinsonism type (HCC),Dementia associated with other underlying disease, without behavioral disturbance, psychotic disturbance, mood disturbance, or anxiety, unspecified dementia severity (HCC),Memory loss TAKE 1 TABLET BY MOUTH 2 TIMES A DAY WITH MORNING AND EVENING MEALS 60 Tablet 5 09/19/2023 Active Memantine HCl 5 MG Oral Tablet (Namenda)Indicati ons:Parkinsonism, unspecified Parkinsonism type (HCC),Dementia associated with other underlying disease, without behavioral disturbance, psychotic disturbance, mood disturbance, or anxiety, unspecified dementia severity (HCC),Memory loss Take 1 Tablet by mouth 2 times a day with morning and evening meals. 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 Increased risk for Malignant Hyperthermia Susceptibility. Please click the link below into your browser for a brief summary of current clinical management recommendations for Malignant Hyperthermia Susceptibility RYR1 Lightheadedness 11/09/2019 Memory changes 08/23/2017 Dyslipidemia, goal LDL below 70 06/21/2015 Dizziness 12/20/2014 BPH with obstruction/lower urinary tract symptom s 12/20/2014 ASCVD (arteriosclerotic cardiovascular disease) 10/08/2011 documented as of this encounter (statuses as of 09/19/2023) Resolved Problems Problem Noted Date Diagnosed Date [...] as of this encounter (statuses as of 09/19/2023) Immunizations Name Administration Dates Next Due Pneumococcal [...] 0 [birth year]06/1963 - 05[birth year]06/1967 Smokeless Tobacco: Never Alcohol Use Standard Drinks/Week Comments Not Currently 0 (1 standard drink = 0.6 oz pur e alcohol) 1 glass of wine daily PHQ-2 Answer Date Recorded PHQ-2 Score 0 09/11/2018 Hunger Vital Sign Answer Date Recorded Worried About Running Out of Food in the Last Ye ar Never true 09/18/2019 Ran Out of Food in the Last Year Never true 09/18/2019 Sex and Gender Information Value Date Recorded Sex Assigned at Male 09/11/2018 8:24 AM EDT Gender Identity Male 09/11/2018 8:24 AM EDT Sexual Orientation Straight 09/11/2018 8: 24 AM EDT Job Start Date Occupation Industry Not on file Not on file Not on file documented as of this encounter Miscellaneous Notes * Telephone Encounter - Benita Davison [facility] - 09/19/2023 11:11 AM EDTSigned Prescriptions: Disp Refills Memantine HCl 5 MG Oral Tablet (Namenda) 60 Tab*5 Sig: TAKE 1 TABLET BY MOUTH 2 TIMES A DAY WITH MORNING AND EVENING MEALSAuthorizing Provider: JACOB BARNETT User: BENITA DAVISON * Telephone Encounter - Interface, [facility] - 09/18/2023 2:00 PM EDT Pending Prescriptions: Disp Refills Memantine HCl 5 MG Oral Tablet [Pharmacy M*60 Tab*5 Sig: Take 1 Tablet by mouth 2 times a day with morning and evening meals. * Telephone Encounter - [facility] - 09/16/2023 4:09 AM EDTPending Prescriptions: Disp Refills Memantine HCl 5 MG Oral Tablet [Pharmacy M*60 Tab*5 Sig: Take 1 Tablet by mouth 2 times a day with morning and evening meals. * Telephone Encounter - [facility] - 09/16/2023 4:07 AM EDT Did you pend patient's preferred pharmacy and medication before forwarding?yes Pharmacy: [facility] [id number] [place] [address] Pending Prescriptions: Disp Refills Memantine HCl 5 MG Oral Tablet (Namenda) *60 Tab*5 Sig: TAKE 1 TABLET BY MOUTH 2 TIMES A DAY WITH MORNING AND EVENING MEALS Last Visit: 06/04/2023 (in office), Visit date not found (telemedicine) Next Visit: 01/07/2024 If no future appointments scheduled, and last appointment is greater than a year ago, please schedule patient for a follow-up appointment Last date the medication was ordered: 11/16/2022 Is this request for a controlled substance?No Urine Drug Screen:No results found for this or any previous visit. Patient Phone Numbers Labs: Lab Results Component Value Date/Time CREAT 1.1 04/23/2023 03:30 PM CREAT 1.2 11/29/2019 10:18 AM POTASSIUM 4.4 04/23/2023 03:30 PM POTASSIUM 5.3 (H) 11/29/2019 10:18 AM TSH 2.10 04/19/2021 12:48 PM TSH 2.36 02/03/2019 02:06 PM LDLCALC 89 07/20/2022 04:53 PM LDLCALC 75 11/02/2019 12:29 PM LDLDIRECT 98 04/23/2023 03:30 PM LDLDIRECT NOT APPLICABLE 11/02/2019 12:29 PM LDLDIRECT 87 07/04/2006 09:06 AM ALT 20 04/23/2023 03:30 PM ALT 28 11/29/2019 10:18 AM documented in this encounter Plan of Treatment Upcoming Encounters Date Type Department Care Team (Late st Contact Info) Description 11/01/2023 2:40 PM EDT Office Visit [facility] [address] [place] [id number] Angelo Cano MD [address] [facility] [place] [address] 01/07/2024 4:20 PM EDT Office Visit [facility] [address] [place] [address] Jacob Barnett DO [address] [place] [address] Health Maintenance Due Date Last Done Comments Zoster Vaccines (1 of 2) 1988 Depression Screening 09/12/2019 09/11/2018, 08/13/2016 (Discussed) CKD PHOS USE SMARTSET 16035 07/21/202307/04, 04/05/2021, 11/02/2019 CKD HGB USE SMARTSET 77822 10/03/202310/02, 07/20/2022, 04/05/2021, Additional history exists GFR 10/23/2023 04/23/2023, 09/05, 07/20/2022, Additional history exists Influenza Vaccine (FLU shot) (Season Ended) 2024 01/13/2015, 01/12/2014, 01/26/2013, Additional history exists Albumin/Creatinine Ratio 04/23/2024 04/23/2023, 05/2021 DTaP,Tdap,and Td Vaccines (2 - Td or Tdap) 09/11/2028 09/11/2018, 02/23/2008 Pneumococcal Vaccine: 65+ Years Completed 09/11/2018, 03/06/2006 COVID-19 Vaccine Discontinued GARDASIL-HPV IMMUNIZATION SERIES Aged Out No longer eligible based on patient's age to complete this topic Hepatitis B Aged Out No longer eligi ble based on patient's age to complete this topic MENINGOCOCCAL (MENACTRA/MENVEO) Aged Out No longer eligible based on patient's age to complete this topic documented as of this encounter Medical Devices Not on filedocumented as of this encounter Visit Diagnoses Diagnosis Parkinsonism, unspecified Parkinsonism type (HCC) Dementia associated with other underlying disease, without behavioral disturbance, psychotic disturbance, mood disturbance, or anxiety, unspecified dementia severity (HCC) Memory loss documented in this encounter Care Teams Brewery Representative Relationship Specialty Start Date End Date Angelo Cano MD [address] [place], [place] [id number] PCP - General Family Medicine 04/24/18 documented as of this encounter
[2023-12-13 20:50] LABS: Troponin I High Sensitivity 7.9 pg/ml (0-20)
[2023-12-13 20:57] LABS: Appearance Urine Clear (Clear); Bacteria Urine Automated None Seen (None Seen); Bilirubin Urine Negative (Negative); Blood Urine Negative (Negative); Cast Urine Automated 0-2 /lpf (0-2); Color Urine Yellow; Epithelial Cell Urine Auto 0-2 /hpf (0-2); Glucose Urine UA Negative (Negative); Ketones Urine Trace (Negative); Leukocyte Esterase Urine Negative (Negative); Nitrite Urine Negative (Negative); Protein Urine 1+ (Negative); RBC Urine Automated 0-2 /hpf (0-2); Urobilinogen Urine Negative (Negative); WBC Urine Automated 0-5 /hpf (0-5); pH Urine 5.5 (4.5-7.5)
[2023-12-13 20:59] LABS: Thyroid Stimulating Hormone 2.487 uIu/ml (0.300-4.500)
--- NOTE | 2023-12-13 21:16 | CT Scan Report ---
Exam(s): CT HEAD Without Contrast EXAM: CT Head Without Intravenous Contrast CLINICAL HISTORY: Reason for exam: weakness. TECHNIQUE: Axial computed tomography images of the head/brain without intravenous contrast. CTDI is 38.55 mGy and DLP is 624.41 mGy-cm. Automated exposure control was utilized for the study. A dose lowering technique was utilized adhering to the principles of ALARA. COMPARISON: 05/09/23 FINDINGS: Brain: Generalized parenchymal volume loss. Periventricular and deep cerebral white matter hypoattenuation suggesting chronic small vessel ischemic change. Deshpande-white matter differentiation maintained. No hemorrhage, mass effect, parenchymal edema, or midline shift. Ventricles: Unremarkable. No hydrocephalus. Bones/joints: Unremarkable. No acute fracture. Soft tissues: Unremarkable. Vasculature: Intracranial atherosclerosis. Sinuses: Unremarkable as visualized. Mastoid air cells: Unremarkable as visualized. No mastoid effusion. Orbits: Lens replacements. IMPRESSION: No acute intracranial process. Electronically signed by: Saleem Velasquez M.D. 12/13/23 21:15 PM
--- NOTE | 2023-12-14 00:44 | History & Physical Report ---
Date of Service December 13, 2023 Assessment & Plan (1) Generalized weakness: Plan: 83-year-old male with past medical history significant for hyperlipidemia, atherosclerotic cardiovascular disease, BPH, CKD stage III, history of dizziness, memory changes, who lives at home with his was brought in because of weakness and shakiness. As per patient is very shaky and not ambulating much. Sometimes he uses walker to go to bathroom. But she is using urinal and putting on diapers. He is eating okay. Swallowing okay. No recent fevers. No complaints of pain except some headache.. No diarrhea or constipation. No nausea or vomiting. Whenever he is putting his one leg on the floor to get up and walk he is having lot of shakiness and getting stuck in that position and she has to call ambulance few times and finally decided to bring the patient to the hospital. Patient is oriented to name only. states sometimes does not know where he is and does not even recognize her. Currently patient can tell his name but could not recognize his and does not know where he is. But seems pleasant. Could not get any history from the patient currently. Hemodynamics are okay. 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 Failed trial of Sinemet per neurology notes. As per neurology notes from May 2023: previous MRI hydrocephalus was versus NPH but with recent MRI was not consistent with normal pressure hydrocephalus. He was started Namenda but seems is not taking Neurology recommended PT OT and follow-up in 3 months Consult consult neurology for further recommendations PT OT Monitor for delirium Hyperlipidemia On statin BPH Monitor for urinary retention Hypertension On metoprolol and Imdur CAD with prior PTCA and stenting of the proximal mid right coronary artery in January 1995 On aspirin, statin and beta-reginaldo DVT prophylaxis Heparin subcu Disposition Med/telemetry Full code. History of Present Illness Chief Complaint: Weakness and shakiness Primary Care Provider: Angelo Cano MD 83-year-old male with past medical history significant for hyperlipidemia, atherosclerotic cardiovascular disease, BPH, CKD stage III, history of dizziness, memory changes, who lives at home with his was brought in because of weakness and shakiness. As per patient is very shaky and not ambulating much. Sometimes he uses walker to go to bathroom. But she is using urinal and putting on diapers. He is eating okay. Swallowing okay. No recent fevers. No complaints of pain except some headache.. No diarrhea or constipation. No nausea or vomiting. Whenever he is putting his one leg on the floor to get up and walk he is having lot of shakiness and getting stuck in that position and she has to call ambulance few times and finally decided to bring the patient to the hospital. Patient is oriented to name only. states sometimes does not know where he is and does not even recognize her. Currently patient can tell his name but could not recognize his and does not know where he is. But seems pleasant. Could not get any history from the patient currently. Hemodynamics are okay. Past medical history. As mentioned above Past surgical history. Left heart catheterization. Colonoscopy. Coronary artery dilatation proximal RCA x 2 [id number], dental surgery, coccyx remote, right foot healed surgery, lumbar laminectomy, right inguinal hernia repair, tonsillectomy, right cataract extraction, sacroiliac joint injection, vasectomy. Social history. . Quit smoking 1965. Smoked 1 pack a day for 40 years. Alcohol 1 glass of wine daily. No drug use. Family history. Brother had diabetes. Father had diabetes. Mother had hypertension. Depression. Sister has diabetes. Allergies Allergy/AdvReac Type Severity Reaction Status Date / Time halothane Allergy Unknown susceptibility Verified 12/13/23 21:18 to malignant hyperthermia succinylcholine Allergy Unknown susceptiblitiy Verified 12/13/23 21:18 to malignant hyperthermia Home Medications Medication Instructions Recorded Confirmed Type acetaminophen 325 mg tablet 325 - 650 mg PO QID PRN Pain 12/13/23 12/13/23 History (Tylenol) aspirin 81 mg tablet,delayed 81 mg PO DAILY 12/13/23 12/13/23 History release atorvastatin 20 mg tablet 20 mg PO DAILY 12/13/23 12/13/23 History isosorbide mononitrate 30 mg 30 mg PO QAM 12/13/23 12/13/23 History tablet,extended release 24 hr metoprolol tartrate 25 mg tablet 12.5 mg PO BID 12/13/23 12/14/23 History Past Med/Surg History Problem List (Updated 12/13/23 @ 21:16 by Mariela Cook MD) Ambulatory dysfunction (Acute) Generalized weakness (Acute) Encounter for pre-operative examination Bilateral hip joint arthritis Medical History Malignant hyperthermia Frequent PVCs CAD (coronary artery disease) s/p RCA stent 1994, hx stable class I-II angina pectoris, follows with [facility] cardio Bradycardia d/t chronic ventricular ectopy per [facility] cardio; on BB Carotid artery stenosis Dementia Parkinson disease CKD (chronic kidney disease) stage 3, GFR 30-59 ml/min BPH (benign prostatic hyperplasia) History of anesthesia reaction malignant hyperthermia susceptibility, RYR1 genetic mutation per [facility] records Hypothyroidism SOB (shortness of breath) on exertion Hypertension Hyperlipidemia Surgical History History of surgery "piece of tailbone taken off in " per PAT RN call History of left cataract surgery History of right cataract surgery History of hernia surgery History of esophagogastroduodenoscopy (EGD) History of colonoscopy History of foot surgery Previous back surgery X 2 History of cardiac cath s/p stenting of RCA in 1994, 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 Sheetrock Applicator Required: No Beliefs That Will Affect Care: None marital status: Current Living Situation: Spouse and Family Current Living Situation Comment: SON LIVES WITH US How many Children do You have: 1 Feels Safe at Home: Yes Assistive Devices: Cane, Hearing Aid - Bilateral and Walker Review of Systems Review of Systems: All systems reviewed & are unremarkable except as noted in HPI & below Physical Exam Physical Exam: General- Not in acute distress Head- atraumatic Eyes- PERRL ENT- oropharynx moist Neck- supple, no JVD. Lungs- clear to auscultation no wheezing or crackles Heart- regular rhythm; no murmur, no gallop. Abdomen- normal bowel sounds, soft, nontender, no distension Extremities- no pretibial edema, no erythema seen Neuro- alert, oriented x 1; PERRL, ; no facial palsy; no dysarthria; moves extremities Results & Data Results & Data Vital Signs (Past 12 Hours) Vital Signs Temp Pulse Pulse Resp BP BP Pulse Ox 12/13/23 22:47 83 18 159/92 H 95 12/13/23 22:26 84 12/13/23 20:23 85 22 145/89 H 96 12/13/23 19:13 94 12/13/23 19:01 36.6 C 94 H 19 141/87 H 94 12/13/23 18:59 91 H O2 Del Method 12/13/23 22:47 Room Air 12/13/23 22:26 12/13/23 20:23 12/13/23 19:13 Room Air 12/13/23 19:01 Room Air 12/13/23 18:59 Diagnostic Findings Laboratory Results WBC 8.46 K/ul (4.8-10.8) 12/13/23 19:06 RBC 4.17 M/uL (4.70-6.10) L 12/13/23 19:06 Hgb 13.4 g/dl (14.0-18.0) L 12/13/23 19:06 Hct 40.5 % (42.0-52.0) L 12/13/23 19:06 MCV 97.1 fL (80.0-100.0) 12/13/23 19:06 MCH 32.1 pg (25.0-34.0) 12/13/23 19:06 MCHC 33.1 g/dL (32.0-36.0) 12/13/23 19:06 RDW Std Deviation 46.5 fL (36.4-46.3) H 12/13/23 19:06 RDW Coeff of [place] 12.9 % (11.5-14.5) 12/13/23 19:06 Plt Count 275 K/uL (130-400) 12/13/23 19:06 MPV 9.7 fL (9.4-12.4) 12/13/23 19:06 Immature Gran % (Auto) 0.4 % 12/13/23 19:06 Neut % (Auto) 72.1 % 12/13/23 19:06 Lymph % (Auto) 15.7 % 12/13/23 19:06 [place] % (Auto) 9.5 % 12/13/23 19:06 Eos % (Auto) 1.7 % 12/13/23 19:06 Baso % (Auto) 0.6 % 12/13/23 19:06 Neut # (Auto) 6.11 K/uL (1.40-6.50) 12/13/23 19:06 Lymph # (Auto) 1.33 K/uL (1.20-3.40) 12/13/23 19:06 [place] # (Auto) 0.80 K/uL (0.11-0.59) H 12/13/23 19:06 Eos # (Auto) 0.14 K/uL (0.00-0.50) 12/13/23 19:06 Baso # (Auto) 0.05 K/uL (0.00-0.20) 12/13/23 19:06 Immature Gran # (Auto) 0.03 K/uL (0.01-0.20) 12/13/23 19:06 PT 11.2 Seconds (9.0-12.0) 12/13/23 19:06 INR 1.0 (0.9-1.1) 12/13/23 19:06 Sodium 139 mmol/L (136-145) 12/13/23 19:06 Potassium 4.0 mmol/L (3.5-5.1) 12/13/23 19:06 Chloride 107 mmol/L (98-107) 12/13/23 19:06 Carbon Dioxide 23 mmol/L (21-32) 12/13/23 19:06 Anion Gap 9 (3-11) 12/13/23 19:06 BUN 32 mg/dl (6-23) H 12/13/23 19:06 Creatinine 0.92 mg/dl (0.6-1.4) 12/13/23 19:06 Est Cr Clr Drug Dosing 64.4 ml/min 12/13/23 19:06 Est GFR ( Amer) 87.6 ml/min 12/13/23 19:06 Est GFR (Non-Af Amer) 75.6 ml/min 12/13/23 19:06 BUN/Creatinine Ratio 34.8 (10-20) H 12/13/23 19:06 Glucose 109 mg/dl (70-99(Fasting)) H 12/13/23 19:06 Lactate 1.3 mmol/L (0.4-2.0) 12/13/23 19:06 Calcium 9.3 mg/dl (8.6-10.3) 12/13/23 19:06 Magnesium 2.0 mg/dl (1.7-2.4) 12/13/23 19:06 Total Bilirubin 0.6 mg/dl (0.2-1.0) 12/13/23 19:06 AST 14 U/L (13-39) 12/13/23 19:06 ALT 13 U/L (7-52) 12/13/23 19:06 Alkaline Phosphatase 82 U/L (34-104) 12/13/23 19:06 Troponin I High Sens 7.9 pg/ml (0-20) 12/13/23 19:06 Total Protein 7.1 gm/dl (6.0-8.3) 12/13/23 19:06 Albumin 3.8 gm/dl (3.4-5.0) 12/13/23 19:06 Globulin 3.3 gm/dl (2.5-4.0) 12/13/23 19:06 Albumin/Globulin Ratio 1.2 (0.9-2) 12/13/23 19:06 TSH 2.487 uIu/ml (0.300-4.500) 12/13/23 19:06 Urine Color Yellow 12/13/23 20:42 Urine Appearance Clear (Clear) 12/13/23 20:42 Urine pH 5.5 (4.5-7.5) 12/13/23 20:42 Ur Specific [place] 1.030 (1.000-1.030) 12/13/23 20:42 Urine Protein 1+ (Negative) H 12/13/23 20:42 Urine Glucose (UA) Negative (Negative) 12/13/23 20:42 Urine Ketones Trace (Negative) H 12/13/23 20:42 Urine Blood Negative (Negative) 12/13/23 20:42 Urine Nitrite Negative (Negative) 12/13/23 20:42 Urine Bilirubin Negative (Negative) 12/13/23 20:42 Urine Urobilinogen Negative (Negative) 12/13/23 20:42 Ur Leukocyte Esterase Negative (Negative) 12/13/23 20:42 Urine WBC (Auto) 0-5 /hpf (0-5) 12/13/23 20:42 Urine RBC (Auto) 0-2 /hpf (0-2) 12/13/23 20:42 U Hyaline Cast (Auto) 0-2 /lpf (0-2) 12/13/23 20:42 U Epithel Cells (Auto) 0-2 /hpf (0-2) 12/13/23 20:42 Urine Bacteria (Auto) None Seen (None Seen) 12/13/23 20:[address] 12/13/23 19:06 Exam(s): CT HEAD Without Contrast EXAM: CT Head Without Intravenous Contrast CLINICAL HISTORY: Reason for exam: weakness. TECHNIQUE: Axial computed tomography images of the head/brain without intravenous contrast. CTDI is 38.55 mGy and DLP is 624.41 mGy-cm. Automated exposure control was utilized for the study. A dose lowering technique was utilized adhering to the principles of ALARA. COMPARISON: 05/09/23 FINDINGS: Brain: Generalized parenchymal volume loss. Periventricular and deep cerebral white matter hypoattenuation suggesting chronic small vessel ischemic change. Deshpande-white matter differentiation maintained. No hemorrhage, mass effect, parenchymal edema, or midline shift. Ventricles: Unremarkable. No hydrocephalus. Bones/joints: Unremarkable. No acute fracture. Soft tissues: Unremarkable. Vasculature: Intracranial atherosclerosis. Sinuses: Unremarkable as visualized. Mastoid air cells: Unremarkable as visualized. No mastoid effusion. Orbits: Lens replacements. IMPRESSION: No acute intracranial process. Electronically signed by: Saleem Velasquez M.D. 12/13/23 21:15 PM ECG Additional Comments: ECG. Normal sinus rhythm rate of 88. No significant change was found. Code Status & VTE Plan VTE Prophylaxis Plan VTE Prophylaxis will be ordered: Yes
[2023-12-14] MEDS ORDERED: NITROGLYCERIN SL 0.4 MG/TAB TAB SL PRN (01:22)
[2023-12-14] MEDS: SODIUM CHLORIDE 0.9% 1,000 ML IV SCH (01:38)
[2023-12-14] MEDS: ACETAMINOPHEN 325 MG TAB PO PRN (03:48)
[2023-12-14 05:52] LABS: Basophils # (auto) 0.06 K/uL (0.00-0.20); Basophils % (auto) 0.6 %; Eosinophils # (auto) 0.22 K/uL (0.00-0.50); Eosinophils % (auto) 2.2 %; Hematocrit (blood only) 37.2 % (42.0-52.0); Hemoglobin 12.5 g/dl (14.0-18.0); Immature Granulocytes # (auto) 0.03 K/uL (0.01-0.20); Immature Granulocytes % (auto) 0.3 %; Lymphocytes # (auto) 1.31 K/uL (1.20-3.40); Lymphocytes % (auto) 13.2 %; Mean Corpuscular Hemoglobin 32.2 pg (25.0-34.0); Mean Corpuscular Hgb Conc 33.6 g/dL (32.0-36.0); Mean Corpuscular Volume 95.9 fL (80.0-100.0); Mean Platelet Volume 9.5 fL (9.4-12.4); Monocytes # (auto) 0.99 K/uL (0.11-0.59); Neutrophils # (auto) 7.29 K/uL (1.40-6.50); Neutrophils % (auto) 73.7 %; Platelet Count 256 K/uL (130-400); RDW Coefficient of Variation 12.6 % (11.5-14.5); Red Blood Count 3.88 M/uL (4.70-6.10)
[2023-12-14 06:09] LABS: BUN Creatinine Ratio 30.1 (10-20); Calcium 8.5 mg/dl (8.6-10.3); Creatinine Clr Calc Pharmacy 71.4 ml/min; Est GFR (Non-African American) 80.2 ml/min; Magnesium 1.9 mg/dl (1.7-2.4); Potassium 3.6 mmol/L (3.5-5.1)
[2023-12-14 07:23] LABS: Estimated Average Glucose 128 mg/dl; Hemoglobin A1C 6.1 % (4.5-5.6)
--- NOTE | 2023-12-14 07:46 | XRay Report ---
XR chest 1V portable CLINICAL HISTORY: weakness COMPARISON STUDY: Chest radiograph August 02, 2010. Chest CT May 09, 2023. FINDINGS: Lung volumes are normal. Lungs are clear. There is no pneumothorax or pleural effusion. Car diomegaly is unchanged. Mediastinal contours are normal. There is no evidence for pulmonary edema. IMPRESSION: No acute cardiopulmonary findings. No change in appearance of the chest. ACT 112: Negative or not required by law. Electronically signed by: Carmelo Galeana M.D. 12/14/2023 7:45 AM
--- NOTE | 2023-12-14 09:00 | Electrocardiogram Report ---
Test Reason : Blood Pressure : */* mmHG Vent. Rate : 88 BPM Atrial Rate : 88 BPM P-R Int : 196 ms QRS Dur : 84 ms QT Int : 374 ms P-R-T Axes : 55 -9 47 degrees QTcB Int : 452 ms Normal sinus rhythm Normal ECG When compared with ECG of 09-May-2023 10:27, No significant change was found Confirmed by Mack Montemayor ([id number]) on 12/14/2023 8:59:56 AM Referred By: REFERRED SELF Confirmed By: Mack Montemayor
[2023-12-14] MEDS: HEPARIN SOD 5,000 UNIT/0.5 ML VIAL SQ SCH (10:49)
[2023-12-14] MEDS: ISOSORBIDE MONO EXTENDED REL 30 MG TABCR PO SCH (10:50)
[2023-12-14] MEDS: ASPIRIN 81 MG ECTAB PO SCH (10:50)
[2023-12-14] MEDS: ATORVASTATIN 20 MG TAB PO SCH (10:50)
[2023-12-14] MEDS: METOPROLOL TARTRATE 25 MG TAB PO SCH (10:51)
--- NOTE | 2023-12-14 11:23 | Hospitalist Progress Note ---
Date of Service December 14, 2023 Assessment & Plan (1) Generalized weakness: Plan: 83 yo M w/ PMH of HLD, atherosclerotic cardiovascular disease, BPH, CKD stage III, dizziness, memory changes, who lives at home with his was brought in because of weakness and shakiness. As per patient is very shaky and not ambulating much. Sometimes he uses walker to go to bathroom. But she is using urinal and putting on diapers. He is eating okay. Swallowing okay. No recent fevers. No complaints of pain except some headache. No diarrhea or constipation. No nausea or vomiting. Whenever he is putting his one leg on the floor to get up and walk he is having lot of shakiness and getting stuck in that position and she has to call ambulance few times and finally decided to bring the patient to the hospital. Patient is oriented to name only. states sometimes does not know where he is and does not even recognize her. He is being managed for the following: Generalized weakness Ambulatory dysfunction Dementia with parkinsonism Failed trial of Sinemet per neurology notes. As per neurology notes from May 2023: previous MRI hydrocephalus was versus NPH but with recent MRI was not consistent with normal pressure hydrocephalus. He was started Namenda but seems is not taking Neurology recommended PT OT and follow-up in 3 months Consulted neurology for further recommendations PT OT Monitor for delirium Hyperlipidemia: c/w statin BPH: Monitor for urinary retention Hypertension: c/w home metoprolol and Imdur CAD: with prior PTCA and stenting of the proximal mid right coronary artery in January 1995. C/w aspirin, statin and beta-reginaldo DVT prophylaxis: Heparin subcu Disposition: Med/telemetry Full code. Admission and Anticipated Discharge Date Admission Date: December 13, 2023 Subjective Patient was seen and examined at bedside. Patient was lying in bed, on room air, NAD, resting comfortably. One-to-one sitter at bedside. Patient with no acute agitation overnight, per sitter, patient is eating okay. ROS not able due to cognition status. Patient appears to be comfortable. Physical Exam Physical Exam: General- Not in acute distress Head- atraumatic Eyes- PERRL ENT- oropharynx moist Neck- supple, no JVD. Lungs- clear to auscultation no wheezing or crackles Heart- regular rhythm; no murmur, no gallop. Abdomen- normal bowel sounds, soft, nontender, no distension Extremities- no pretibial edema, no erythema seen Neuro- alert, oriented x self; PERRL, ; no facial palsy; no dysarthria; moves extremities Results & Data Results & Data Vital Signs (Past 12 Hours) Vital Signs Temp Pulse Pulse Resp BP Pulse Ox O2 Del Method 12/14/23 11:12 36.6 C 84 17 154/70 H 96 Room Air 12/14/23 07:09 36.9 C 76 19 146/74 H 95 Room Air 12/14/23 02:00 Room Air 12/14/23 01:30 36.5 C 78 20 161/78 H 95 Room Air 12/14/23 01:22 83 12/14/23 00:29 36.9 C 85 16 128/87 95 Room Air
--- NOTE | 2023-12-14 12:36 | Neurology Consultation ---
Date of Consultation December 14, 2023 Assessment & Plan (1) Ambulatory dysfunction: In a patient with extensive advanced dementia but he cannot verbalize his needs. His reports worsening tremors, and that Sinemet has not helped in the past and he advanced pretty quickly. Plan The patient will need placement in a [facility] facility. I did not notice any extensive tremors. Can try pramipexole (Mirapex) 0.125 mg 3 times daily. There is always a risk of hallucinations with dopamine agonists, this can be discontinued if not helpful. No need for further neurologic imaging Telehealth Consultation Telehealth Information Telehealth Information: I performed this visit using a real-time telehealth connection between my location and the patients location ([facility]). After connecting through interactive tele-video, patient was identified by name and date of and/or wristband check.Patient (or authorized healthcare repre sentative) was informed that this was a telemedicine visit and it was being conducted confidentially over secure lines. My office door was closed and no one else was present in the room with me.Patient (or authorized healthcare dental sales representative) provided consent to proceed with the visit, expressed an understanding of privacy and security of the telemedicine visit, and gave permission to have a hospital dental sales representative in the room in order to assist with the visit and to conduct portions of the visit, as needed. I informed the patient (or authorized healthcare dental sales representative) that I reviewed their record and presented the opportunity for them to ask any questions regarding the visit today. The patient agreed to participate. History of Present Illness Reason for Consultation: Worsening gait instability Requesting Physician: Payam Brewster MD Attending Physician: Payam Brewster MD History of Present Illness 83-year-old male patient with PMH of Parkinson's disease, failed Sinemet trial Parkinson's dementia has not been taking the Namenda history of NPH who has presented to the emergency room with weakness and worsening ambulatory dysfunction as per his who is the caregiver. The patient also has an area of chronic cardiovascular medical problems. His describes that he has been more shaky lately, he is incontinent and wears diapers, uses the walker to go to the bathroom. The describes that he would get stuck in certain positions .. I spoke with his nAnalee reports that it has been more more difficult to take care of him at home, the day when she called EMS was especially difficult because he was very shaky. She reports that at baseline he is able And cannot form sentences Express his needs clearly Allergies Allergy/AdvReac Type Severity Reaction Status Date / Time halothane Allergy Unknown susceptibility Verified 12/13/23 21:18 to malignant hyperthermia succinylcholine Allergy Unknown susceptiblitiy Verified 12/13/23 21:18 to malignant hyperthermia Home Medications Medication Instructions Recorded Confirmed Type acetaminophen 325 mg tablet 325 - 650 mg PO QID PRN Pain 12/13/23 12/13/23 History (Tylenol) aspirin 81 mg tablet,delayed 81 mg PO DAILY 12/13/23 12/13/23 History release atorvastatin 20 mg tablet 20 mg PO DAILY 12/13/23 12/13/23 History isosorbide mononitrate 30 mg 30 mg PO QAM 12/13/23 12/13/23 History tablet,extended release 24 hr metoprolol tartrate 25 mg tablet 12.5 mg PO BID 12/13/23 12/14/23 History Patient History Medical History Malignant hyperthermia Frequent PVCs CAD (coronary artery disease) s/p RCA stent 1994, hx stable class I-II angina pectoris, follows with [facility] cardio Bradycardia d/t chronic ventricular ectopy per [facility] cardio; on BB Carotid artery stenosis Dementia Parkinson disease CKD (chronic kidney disease) stage 3, GFR 30-59 ml/min BPH (benign prostatic hyperplasia) History of anesthesia reaction malignant hyperthermia susceptibility, RYR1 genetic mutation per [facility] records Hypothyroidism SOB (shortness of breath) on exertion Hypertension Hyperlipidemia Surgical History History of surgery "piece of tailbone taken off in 1970s" per PAT RN call History of left cataract surgery History of right cataract surgery History of hernia surgery History of esophagogastroduodenoscopy (EGD) History of colonoscopy History of foot surgery Previous back surgery X 2 History of cardiac cath s/p stenting of RCA in 1994, PAT jailer chief call states patient also had additional stent placed > 30 yrs ago Social History Smoking Status: Unknown if ever smoked Second Hand Exposure: No; Do You Dip or Chew Tobacco: No; Hx Substance Use: No Preferred Language: Upper Sorbian Communication Ability: Impaired Communication Ability Comment: PT HAS MEMORY PROBLEM/ DOES PHONE CALL AND SIGNS CONSENTS. Anatomy Teacher Required: No Beliefs That Will Affect Care: None marital status: Current Living Situation: Spouse and Family Current Living Situation Comment: SON LIVES WITH US How many Children do You have: 1 Feels Safe at Home: Yes Assistive Devices: Cane, Hearing Aid - Bilateral and Walker Review of Systems Cannot obtain due to advanced dementia, otherwise reports no recent illnesses fevers or chills. Physical Exam The patient is awake, attends to his name occasionally, he was trying to eat, did not follow commands, he speaks incoherent words, moving bilateral upper extremities freely, with the help of the nurse and could conclude that his left arm is stiffer than his right arm, minimal movement in his bilateral lower extremities, however he did not withdrawal and became agitated to painful stimulation. Results & Data Vital Signs (Past 12 Hours) Vital Signs Temp Pulse Pulse Resp BP Pulse Ox O2 Del Method 12/14/23 11:12 36.6 C 84 17 154/70 H 96 Room Air 12/14/23 07:09 36.9 C 76 19 146/74 H 95 Room Air 12/14/23 02:00 Room Air 12/14/23 01:30 36.5 C 78 20 161/78 H 95 Room Air 12/14/23 01:22 83 12/14/23 00:29 36.9 C 85 16 128/87 95 Room Air Laboratory Results Abnormal lab results 12/13/23 12/13/23 12/14/23 Range/Units 19:06 20:42 05:30 RBC 4.17 L 3.88 L (4.70-6.10) M/uL Hgb 13.4 L 12.5 L (14.0-18.0) g/dl Hct 40.5 L 37.2 L (42.0-52.0) % RDW Std Deviation 46.5 H (36.4-46.3) fL Neut # (Auto) 7.29 H (1.40-6.50) K/uL White # (Auto) 0.80 H 0.99 H (0.11-0.59) K/uL BUN 32 H 25 H (6-23) mg/dl BUN/Creatinine Ratio 34.8 H 30.1 H (10-20) Glucose 109 H 119 H (70-99(Fasting)) mg/dl POC Glucose (70-99) mg/dl Hemoglobin A1c 6.1 H (4.5-5.6) % Calcium 8.5 L (8.6-10.3) mg/dl Urine Protein 1+ H (Negative) Urine Ketones Trace H (Negative) 12/14/23 Range/Units 07:50 RBC (4.70-6.10) M/uL Hgb (14.0-18.0) g/dl Hct (42.0-52.0) % RDW Std Deviation (36.4-46.3) fL Neut # (Auto) (1.40-6.50) K/uL White # (Auto) (0.11-0.59) K/uL BUN (6-23) mg/dl BUN/Creatinine Ratio (10-20) Glucose (70-99(Fasting)) mg/dl POC Glucose 100 H (70-99) mg/dl Hemoglobin A1c (4.5-5.6) % Calcium (8.6-10.3) mg/dl Urine Protein (Negative) Urine Ketones (Negative) Diagnostic Findings Chest X-Ray 12/13/23 19:06 XR chest 1V portable CLINICAL HISTORY: weakness COMPARISON STUDY: Chest radiograph August 02, 2010. Chest CT May 09, 2023. FINDINGS: Lung volumes are normal. Lungs are clear. There is no pneumothorax or pleural effusion. Cardiomegaly is unchanged. Mediastinal contours are normal. There is no evidence for pulmonary edema. IMPRESSION: No acute cardiopulmonary findings. No change in appearance of the chest. ACT 112: Negative or not required by law. Electronically signed by: Carmelo Galeana M.D. 12/14/2023 7:[address] 12/13/23 19:06 Exam(s): CT HEAD Without Contrast EXAM: CT Head Without Intravenous Contrast CLINICAL HISTORY: Reason for exam: weakness. TECHNIQUE: Axial computed tomography images of the head/brain without intravenous contrast. CTDI is 38.55 mGy and DLP is 624.41 mGy-cm. Automated exposure control was utilized for the study. A dose lowering technique was utilized adhering to the principles of ALARA. COMPARISON: 05/09/23 FINDINGS: Brain: Generalized parenchymal volume loss. Periventricular and deep cerebral white matter hypoattenuation suggesting chronic small vessel ischemic change. Deshpande-white matter differentiation maintained. No hemorrhage, mass effect, parenchymal edema, or midline shift. Ventricles: Unremarkable. No hydrocephalus. Bones/joints: Unremarkable. No acute fracture. Soft tissues: Unremarkable. Vasculature: Intracranial atherosclerosis. Sinuses: Unremarkable as visualized. Mastoid air cells: Unremarkable as visualized. No mastoid effusion. Orbits: Lens replacements. IMPRESSION: No acute intracranial process. Electronically signed by: Saleem Velasquez M.D. 12/13/23 21:15 PM Medications Administered Home Medications Medication Instructions Recorded Confirmed Last Taken acetaminophen 325 mg tablet 325 - 650 mg PO QID PRN Pain 12/13/23 12/13/23 Unknown (Tylenol) aspirin 81 mg tablet,delayed 81 mg PO DAILY 12/13/23 12/13/23 Unknown release atorvastatin 20 mg tablet 20 mg PO DAILY 12/13/23 12/13/23 Unknown isosorbide mononitrate 30 mg 30 mg PO QAM 12/13/23 12/13/23 Unknown tablet,extended release 24 hr metoprolol tartrate 25 mg tablet 12.5 mg PO BID 12/13/23 12/14/23 Unknown Active Medications Generic Name Dose Route Start Last Admin Trade Name Freq PRN Reason Stop Dose Admin Acetaminophen 650 mg 12/14/23 01:22 12/14/23 03:48 Acetaminophen 325 Mg Tab PO 01/13/24 01:21 650 mg Q4H PRN Administration Pain or Fever Aspirin 81 mg 12/14/23 09:00 12/14/23 10:50 Aspirin 81 Mg Ectab PO 01/13/24 08:59 81 mg DAILY KAYLAN Administration Atorvastatin Calcium 20 mg 12/14/23 09:00 12/14/23 10:50 Atorvastatin 20 Mg Tab PO 01/13/24 08:59 20 mg DAILY KAYLAN Administration Heparin Sodium (Porcine) 5,000 units 12/14/23 09:00 12/14/23 10:49 Heparin Sod 5,000 Unit/0.5 Ml Vial SQ 01/13/24 08:59 5,000 units Q12 KAYLAN Administration Sodium Chloride 1,000 mls @ 75 mls/hr 12/14/23 01:22 12/14/23 01:38 Nss IV 12/14/23 14:41 75 mls/hr .[id number] KAYLAN Administration Isosorbide Mononitrate 30 mg 12/14/23 09:00 12/14/23 10:50 Isosorbide White Extended Rel 30 Mg Tabcr PO 01/13/24 08:59 30 mg QAM KAYLAN Administration Metoprolol Tartrate 12.5 mg 12/14/23 09:00 12/14/23 10:51 Metoprolol Tartrate 25 Mg Tab PO 01/13/24 08:59 12.5 mg BID KAYLAN Administration
[2023-12-14] MEDS: MELATONIN 3 MG TAB PO PRN (22:07)
[2023-12-15] MEDS: LABETALOL HCL IV 5 MG/ML 20ML IV STA (04:53)
[2023-12-15 07:23] LABS: Hematocrit (blood only) 39.3 % (42.0-52.0); Hemoglobin 13.5 g/dl (14.0-18.0); Mean Corpuscular Hgb Conc 34.4 g/dL (32.0-36.0); Mean Corpuscular Volume 96.1 fL (80.0-100.0); Mean Platelet Volume 9.9 fL (9.4-12.4); Platelet Count 302 K/uL (130-400); RDW Coefficient of Variation 12.5 % (11.5-14.5); RDW Standard Deviation 44.4 fL (36.4-46.3); Red Blood Count 4.09 M/uL (4.70-6.10); White Blood Count 10.05 K/ul (4.8-10.8)
[2023-12-15 07:39] LABS: BUN Creatinine Ratio 24.1 (10-20); Calcium 8.8 mg/dl (8.6-10.3); Est GFR (African American) 94.9 ml/min; Est GFR (Non-African American) 81.9 ml/min; Magnesium 1.9 mg/dl (1.7-2.4); Potassium 3.6 mmol/L (3.5-5.1)
[2023-12-15] MEDS ORDERED: hydrALAZINE HCL 25 MG TAB PO PRN (15:02)
--- NOTE | 2023-12-15 15:03 | Hospitalist Progress Note ---
Date of Service December 15, 2023 Assessment & Plan (1) Generalized weakness: Plan: 83 yo M w/ PMH of HLD, atherosclerotic cardiovascular disease, BPH, CKD stage III, dizziness, memory changes, who lives at home with his was brought in because of weakness and shakiness. As per patient is very shaky and not ambulating much. Sometimes he uses walker to go to bathroom. But she is using urinal and putting on diapers. He is eating okay. Swallowing okay. No recent fevers. No complaints of pain except some headache. No diarrhea or constipation. No nausea or vomiting. Whenever he is putting his one leg on the floor to get up and walk he is having lot of shakiness and getting stuck in that position and she has to call ambulance few times and finally decided to bring the patient to the hospital. Patient is oriented to name only. states sometimes does not know where he is and does not even recognize her. He is being managed for the following: Generalized weakness Ambulatory dysfunction Dementia with parkinsonism Failed trial of Sinemet per neurology notes. As per neurology notes from May 2023: previous MRI hydrocephalus was versus NPH but with recent MRI was not consistent with normal pressure hydrocephalus. He was started Namenda but seems is not taking Neurology recommended PT OT and follow-up in 3 months Neuro evaled this admission, no need for further imaging in this extensive advanced dementia patient D/w pt's 12/13 the nature of end stage dementia and ongoing increasing needs for the patient. She doesn't want pramipexole be started on him after hearing its side effect of hallucinations PT OT Monitor for delirium Hyperlipidemia: c/w statin BPH: Monitor for urinary retention Hypertension: c/w home metoprolol and Imdur CAD: with prior PTCA and stenting of the proximal mid right coronary artery in January 1995. C/w aspirin, statin and beta-reginaldo DVT prophylaxis: Heparin subcu Disposition: med/surg. pt/ot. cm to assist w/ dc plan. Full code. Admission and Anticipated Discharge Date Admission Date: December 13, 2023 Subjective Patient was seen and examined at bedside. Patient was lying in bed, on room air, NAD, resting comfortably. One-to-one sitter at bedside. Patient with no acute agitation overnight. ROS not able due to cognition status. Patient appears to be comfortable. Physical Exam Physical Exam: General- Not in acute distress Head- atraumatic Eyes- PERRL ENT- oropharynx moist Neck- supple, no JVD. Lungs- clear to auscultation no wheezing or crackles Heart- regular rhythm; no murmur, no gallop. Abdomen- normal bowel sounds, soft, nontender, no distension Extremities- no pretibial edema, no erythema seen Neuro- alert, oriented x self; PERRL, ; no facial palsy; no dysarthria; moves extremities Results & Data Results & Data Vital Signs (Past 12 Hours) Vital Signs Temp Pulse Pulse Resp BP BP Pulse Ox 12/15/23 13:48 85 12/15/23 09:00 12/15/23 07:05 87 12/15/23 05:08 78 162/80 H 12/15/23 04:08 36.4 C L 88 18 183/84 H 95 O2 Del Method 12/15/23 13:48 12/15/23 09:00 Room Air 12/15/23 07:05 12/15/23 05:08 12/15/23 04:08 Room Air
--- NOTE | 2023-12-15 17:16 | XRay Report ---
XR cervical spine 2 or 3V CLINICAL HISTORY: neck pain/discomfort COMPARISON STUDY: Cervical spine CT May 09, 2023. FINDINGS: This exam is mildly compromised given difficulty positioning. C7 is partially obscured. Ali gnment of the cervical spine appears anatomic. Vertebral body heights are maintained. No fractures ar e identified within visualized portions of the cervical spine. Moderate multilevel degenerative chavez es are present. Disc space narrowing is most pronounced at C5-C6. Prevertebral soft tissues are unrem arkable. IMPRESSION: 1. No cervical spine fractures identified. C7 partially obscured. 2. Moderate multilevel facet arthrosis and degenerative disc disease. ACT 112: Negative or not required by law. Electronically signed by: Carmelo Galeana M.D. 12/15/2023 5:13 PM
--- NOTE | 2023-12-16 14:44 | Hospitalist Progress Note ---
Date of Service December 16, 2023 Assessment & Plan (1) Generalized weakness: Plan: 83 yo M w/ PMH of HLD, atherosclerotic cardiovascular disease, BPH, CKD stage III, dizziness, memory changes, who lives at home with his was brought in because of weakness and shakiness. As per patient is very shaky and not ambulating much. Sometimes he uses walker to go to bathroom. But she is using urinal and putting on diapers. He is eating okay. Swallowing okay. No recent fevers. No complaints of pain except some headache. No diarrhea or constipation. No nausea or vomiting. Whenever he is putting his one leg on the floor to get up and walk he is having lot of shakiness and getting stuck in that position and she has to call ambulance few times and finally decided to bring the patient to the hospital. Patient is oriented to name only. states sometimes does not know where he is and does not even recognize her. He is being managed for the following: Generalized weakness Ambulatory dysfunction Dementia with parkinsonism Failed trial of Sinemet per neurology notes. As per neurology notes from May 2023: previous MRI hydrocephalus was versus NPH but with recent MRI was not consistent with normal pressure hydrocephalus. He was started Namenda but seems is not taking Neurology recommended PT OT and follow-up in 3 months Neuro evaled this admission, no need for further imaging in this extensive advanced dementia patient D/w pt's 12/13 the nature of end stage dementia and ongoing increasing needs for the patient. She doesn't want pramipexole be started on him after hearing its side effect of hallucinations PT OT Monitor for delirium Hyperlipidemia: c/w statin BPH: Monitor for urinary retention Hypertension: c/w home metoprolol and Imdur CAD: with prior PTCA and stenting of the proximal mid right coronary artery in January 1995. C/w aspirin, statin and beta-reginaldo DVT prophylaxis: Heparin subcu Disposition: med/surg. pt/ot. cm to assist w/ dc plan. likely will need placement. Full code. Admission and Anticipated Discharge Date Admission Date: December 13, 2023 Subjective Patient was seen and examined at bedside. Patient was lying in bed, on room air, NAD, resting comfortably. One-to-one sitter at bedside. Patient with no acute agitation overnight. ROS not able due to cognition status. Patient appears to be comfortable. Physical Exam Physical Exam: General- Not in acute distress Head- atraumatic Eyes- PERRL ENT- oropharynx moist Neck- supple, no JVD. Lungs- clear to auscultation no wheezing or crackles Heart- regular rhythm; no murmur, no gallop. Abdomen- normal bowel sounds, soft, nontender, no distension Extremities- no pretibial edema, no erythema seen Neuro- alert, oriented x self; PERRL, ; no facial palsy; no dysarthria; moves extremities Results & Data Results & Data Vital Signs (Past 12 Hours) Vital Signs Temp Pulse Resp BP Pulse Ox O2 Del Method 12/16/23 07:59 36.6 C 64 16 153/73 H 93 Room Air
[2023-12-17 07:13] LABS: Hematocrit (blood only) 41.9 % (42.0-52.0); Mean Corpuscular Hemoglobin 32.2 pg (25.0-34.0); Mean Corpuscular Hgb Conc 33.4 g/dL (32.0-36.0); Mean Corpuscular Volume 96.3 fL (80.0-100.0); Mean Platelet Volume 9.5 fL (9.4-12.4); Platelet Count 309 K/uL (130-400); RDW Coefficient of Variation 12.7 % (11.5-14.5); RDW Standard Deviation 45.6 fL (36.4-46.3); Red Blood Count 4.35 M/uL (4.70-6.10); White Blood Count 9.48 K/ul (4.8-10.8)
--- NOTE | 2023-12-17 15:52 | Hospitalist Progress Note ---
Date of Service December 17, 2023 Assessment & Plan (1) Generalized weakness: Plan: 83 yo M w/ PMH of HLD, atherosclerotic cardiovascular disease, BPH, CKD stage III, dizziness, memory changes, who lives at home with his was brought in because of weakness and shakiness. As per patient is very shaky and not ambulating much. Sometimes he uses walker to go to bathroom. But she is using urinal and putting on diapers. He is eating okay. Swallowing okay. No recent fevers. No complaints of pain except some headache. No diarrhea or constipation. No nausea or vomiting. Whenever he is putting his one leg on the floor to get up and walk he is having lot of shakiness and getting stuck in that position and she has to call ambulance few times and finally decided to bring the patient to the hospital. Patient is oriented to name only. states sometimes does not know where he is and does not even recognize her. He is being managed for the following: Generalized weakness Ambulatory dysfunction Dementia with parkinsonism Failed trial of Sinemet per neurology notes. As per neurology notes from May 2023: previous MRI hydrocephalus was versus NPH but with recent MRI was not consistent with normal pressure hydrocephalus. He was started Namenda but seems is not taking Neurology recommended PT OT and follow-up in 3 months Neuro evaled this admission, no need for further imaging in this extensive advanced dementia patient D/w pt's 12/13 the nature of end stage dementia and ongoing increasing needs for the patient. She doesn't want pramipexole be started on him after hearing its side effect of hallucinations PT OT Monitor for delirium Hyperlipidemia: c/w statin BPH: Monitor for urinary retention Hypertension: c/w home metoprolol and Imdur CAD: with prior PTCA and stenting of the proximal mid right coronary artery in January 1995. C/w aspirin, statin and beta-reginaldo DVT prophylaxis: Heparin subcu Disposition: med/surg. pt/ot. cm to assist w/ dc plan. likely will need placement. Full code. Admission and Anticipated Discharge Date Admission Date: December 13, 2023 Subjective Patient was seen and examined at bedside. Patient was lying in bed, on room air, NAD, resting comfortably. One-to-one sitter at bedside. Patient with no acute agitation overnight. ROS not able due to cognition status. Patient appears to be comfortable. Physical Exam Physical Exam: General- Not in acute distress Head- atraumatic Eyes- PERRL ENT- oropharynx moist Neck- supple, no JVD. Lungs- clear to auscultation no wheezing or crackles Heart- regular rhythm; no murmur, no gallop. Abdomen- normal bowel sounds, soft, nontender, no distension Extremities- no pretibial edema, no erythema seen Neuro- alert, oriented x self; PERRL, ; no facial palsy; no dysarthria; moves extremities Results & Data Results & Data Vital Signs (Past 12 Hours) Vital Signs Temp Pulse Resp BP Pulse Ox O2 Del Method 12/17/23 14:34 36.5 C 70 18 121/75 90 Room Air 12/17/23 09:17 Room Air 12/17/23 06:52 36.5 C 59 L 16 148/87 H 92 Room Air
[2023-12-18 08:07] LABS: BUN Creatinine Ratio 46.8 (10-20); Calcium 8.8 mg/dl (8.6-10.3); Est GFR (African American) 94.9 ml/min; Est GFR (Non-African American) 81.9 ml/min; Phosphorus 3.1 mg/dl (2.5-4.9); Potassium 3.7 mmol/L (3.5-5.1)
--- NOTE | 2023-12-18 14:51 | Hospitalist Progress Note ---
Date of Service December 18, 2023 Assessment & Plan (1) Generalized weakness: Plan: 83 yo M w/ PMH of HLD, atherosclerotic cardiovascular disease, BPH, CKD stage III, dizziness, memory changes, who lives at home with his was brought in because of weakness and shakiness. As per patient is very shaky and not ambulating much. Sometimes he uses walker to go to bathroom. But she is using urinal and putting on diapers. He is eating okay. Swallowing okay. No recent fevers. No complaints of pain except some headache. No diarrhea or constipation. No nausea or vomiting. Whenever he is putting his one leg on the floor to get up and walk he is having lot of shakiness and getting stuck in that position and she has to call ambulance few times and finally decided to bring the patient to the hospital. Patient is oriented to name only. states sometimes does not know where he is and does not even recognize her. He is being managed for the following: Generalized weakness Ambulatory dysfunction Dementia with parkinsonism Failed trial of Sinemet per neurology notes. As per neurology notes from May 2023: previous MRI hydrocephalus was versus NPH but with recent MRI was not consistent with normal pressure hydrocephalus. He was started Namenda but seems is not taking Neurology recommended PT OT and follow-up in 3 months Neuro evaluated this admission, no need for further imaging in this extensive advanced dementia patient D/w pt's 12/13 the nature of end stage dementia and ongoing increasing needs for the patient. She doesn't want pramipexole be started on him after hearing its side effect of hallucinations No acute delirium with minimal unsuitability in bed Awaiting placement Hyperlipidemia: c/w statin BPH: Monitor for urinary retention Hypertension: c/w home metoprolol and Imdur CAD: with prior PTCA and stenting of the proximal mid right coronary artery in January 1995. C/w aspirin, statin and beta-reginaldo DVT prophylaxis: Heparin subcu Disposition: med/surg. pt/ot. cm to assist w/ dc plan. likely will need placement. Full code. Admission and Anticipated Discharge Date Admission Date: December 13, 2023 Subjective 12/18/2023 The patient was seen and examined in medical telemetry He has been unstable in bed and was trying to come out of the Remains confused but does not seem to be in any distress Review of Systems Review of Systems: Unobtainable due to cognitive status Physical Exam Physical Exam: Lying in bed without any acute distress Constitutional: well developed, well nourished and + ill appearing Eyes: PERRL, conjunctivae normal, anicteric sclerae ENMT: external ear and nose normal, oropharynx normal Neck: trachea midline, no thyromegaly Respiratory: no respiratory distress Auscultation: lungs clear to auscultation bilaterally Cardiovascular: Rate/Rhythm: regular rate and regular rhythm; not tachycardic Heart Sounds: normal S1 and normal S2; no abnormal opening sounds Extremities: no edema Gastrointestinal (Abdomen): Inspection/Auscultation: normal bowel sounds; abdomen not distended Percussion/Palpation: abdomen soft; abdomen nontender Musculoskeletal: No acute arthritis involving of the joints Neurologic: Alert and awake. Totally confused with history of advanced dementia Lymphatic: no cervical or axillary lymphadenopathy Results & Data Results & Data Vital Signs (Past 12 Hours) Vital Signs Temp Pulse Resp BP Pulse Ox O2 Del Method 12/18/23 08:00 Room Air 12/18/23 07:41 36.6 C 65 16 160/82 H 93 Room Air Laboratory Results [facility] 12/18/23 07:35 Sodium 140 Potassium 3.7 Chloride 105 Carbon Dioxide 29 BUN 37 H Creatinine 0.79 Glucose 108 H Calcium 8.8 Medications Administered Current Inpatient Medications Acetaminophen (Acetaminophen 325 Mg Tab) 650 mg PO Q4H PRN PRN Reason: Pain or Fever Stop: 01/13/24 01:21 Last Admin: 12/18/23 11:38 Dose: 650 mg Aspirin (Aspirin 81 Mg Ectab) 81 mg PO DAILY [facility] Stop: 01/13/24 08:59 Last Admin: 12/18/23 11:32 Dose: 81 mg Atorvastatin Calcium (Atorvastatin 20 Mg Tab) 20 mg PO DAILY [facility] Stop: 01/13/24 08:59 Last Admin: 12/18/23 11:32 Dose: 20 mg Heparin Sodium (Porcine) (Heparin Sod 5,000 Unit/0.5 Ml Vial) 5,000 units SQ Q12 [facility] Stop: 01/13/24 08:59 Last Admin: 12/18/23 11:31 Dose: 5,000 units Hydralazine HCl (Hydralazine Hcl 25 Mg Tab) 25 mg PO TID PRN PRN Reason: Hypertension Stop: 01/14/24 20:59 Isosorbide Mononitrate (Isosorbide [place] Extended Rel 30 Mg Tabcr) 30 mg PO QAM [facility] Stop: 01/13/24 08:59 Last Admin: 12/18/23 11:32 Dose: 30 mg Melatonin (Melatonin 3 Mg Tab) 3 mg PO HS PRN PRN Reason: Sleep Stop: 01/13/24 21:56 Last Admin: 12/17/23 19:56 Dose: 3 mg Metoprolol Tartrate (Metoprolol Tartrate 25 Mg Tab) 12.5 mg PO BID [facility] Stop: 01/13/24 08:59 Last Admin: 12/18/23 11:31 Dose: 12.5 mg Nitroglycerin (Nitroglycerin Sl 0.4 Mg/Tab Tab) 0.4 mg SL Q5M PRN PRN Reason: Chest Pain Stop: 01/13/24 01:21
[2023-12-19 07:13] VITALS: RESP 16
--- NOTE | 2023-12-19 13:06 | Hospitalist Progress Note ---
Date of Service December 19, 2023 Assessment & Plan (1) Generalized weakness: Plan: 83 yo M w/ PMH of HLD, atherosclerotic cardiovascular disease, BPH, CKD stage III, dizziness, memory changes, who lives at home with his was brought in because of weakness and shakiness. As per patient is very shaky and not ambulating much. Sometimes he uses walker to go to bathroom. But she is using urinal and putting on diapers. He is eating okay. Swallowing okay. No recent fevers. No complaints of pain except some headache. No diarrhea or constipation. No nausea or vomiting. Whenever he is putting his one leg on the floor to get up and walk he is having lot of shakiness and getting stuck in that position and she has to call ambulance few times and finally decided to bring the patient to the hospital. Patient is oriented to name only. states sometimes does not know where he is and does not even recognize her. He is being managed for the following: Generalized weakness Ambulatory dysfunction Dementia with parkinsonism Failed trial of Sinemet per neurology notes. As per neurology notes from May 2023: previous MRI hydrocephalus was versus NPH but with recent MRI was not consistent with normal pressure hydrocephalus. He was started Namenda but seems is not taking Neurology recommended PT OT and follow-up in 3 months Neuro evaluated this admission, no need for further imaging in this extensive advanced dementia patient D/w pt's 12/13 the nature of end stage dementia and ongoing increasing needs for the patient. She doesn't want pramipexole be started on him after hearing its side effect of hallucinations No acute delirium with minimal unsuitability in bed Remains pleasantly confused without any acute distress Occasionally tries to come out of bed Needs assistance with feeding and other ADL S Awaiting placement Hyperlipidemia: c/w statin BPH: Monitor for urinary retention Hypertension: c/w home metoprolol and Imdur CAD: with prior PTCA and stenting of the proximal mid right coronary artery in January 1995. C/w aspirin, statin and beta-reginaldo DVT prophylaxis: Heparin subcu Disposition: med/surg. pt/ot. cm to assist w/ dc plan. likely will need placement. Full code. Admission and Anticipated Discharge Date Admission Date: December 13, 2023 Subjective 12/18/2023 The patient was seen and examined in medical telemetry He has been unstable in bed and was trying to come out of the Remains confused but does not seem to be in any distress 12/19/2023 The patient was seen and examined in medical floor He remains confused otherwise not in any other distress Awaiting placement Review of Systems Review of Systems: Unobtainable due to cognitive status Physical Exam Physical Exam: Lying in bed without any acute distress Constitutional: well developed, well nourished and + ill appearing Eyes: PERRL, conjunctivae normal, anicteric sclerae ENMT: external ear and nose normal, oropharynx normal Neck: trachea midline, no thyromegaly Respiratory: no respiratory distress Auscultation: lungs clear to auscultation bilaterally Cardiovascular: Rate/Rhythm: regular rate and regular rhythm; not tachycardic Heart Sounds: normal S1 and normal S2; no abnormal opening sounds Extremities: no edema Gastrointestinal (Abdomen): Inspection/Auscultation: normal bowel sounds; abdomen not distended Percussion/Palpation: abdomen soft; abdomen nontender Lymphatic: no cervical or axillary lymphadenopathy Results & Data Results & Data Vital Signs (Past 12 Hours) Vital Signs Temp Pulse Resp BP Pulse Ox O2 Del Method 12/19/23 07:55 Room Air 12/19/23 07:12 36.5 C 94 H 16 174/73 H 96 Room Air Medications Administered Current Inpatient Medications Acetaminophen (Acetaminophen 325 Mg Tab) 650 mg PO Q4H PRN PRN Reason: Pain or Fever Stop: 01/13/24 01:21 Last Admin: 12/18/23 11:38 Dose: 650 mg Aspirin (Aspirin 81 Mg Ectab) 81 mg PO DAILY [facility] Stop: 01/13/24 08:59 Last Admin: 12/19/23 09:00 Dose: 81 mg Atorvastatin Calcium (Atorvastatin 20 Mg Tab) 20 mg PO DAILY [facility] Stop: 01/13/24 08:59 Last Admin: 12/19/23 09:00 Dose: 20 mg Heparin Sodium (Porcine) (Heparin Sod 5,000 Unit/0.5 Ml Vial) 5,000 units SQ Q12 [facility] Stop: 01/13/24 08:59 Last Admin: 12/19/23 09:01 Dose: 5,000 units Hydralazine HCl (Hydralazine Hcl 25 Mg Tab) 25 mg PO TID PRN PRN Reason: Hypertension Stop: 01/14/24 20:59 Isosorbide Mononitrate (Isosorbide [place] Extended Rel 30 Mg Tabcr) 30 mg PO QAM [facility] Stop: 01/13/24 08:59 Last Admin: 12/19/23 09:01 Dose: 30 mg Melatonin (Melatonin 3 Mg Tab) 3 mg PO HS PRN PRN Reason: Sleep Stop: 01/13/24 21:56 Last Admin: 12/17/23 19:56 Dose: 3 mg Metoprolol Tartrate (Metoprolol Tartrate 25 Mg Tab) 12.5 mg PO BID [facility] Stop: 01/13/24 08:59 Last Admin: 12/19/23 09:00 Dose: 12.5 mg Nitroglycerin (Nitroglycerin Sl 0.4 Mg/Tab Tab) 0.4 mg SL Q5M PRN PRN Reason: Chest Pain Stop: 01/13/24 01:21
[2023-12-19 14:49] VITALS: BP 143/60; PULSE 85; TEMP 97.9; O2SAT 94
--- NOTE | 2023-12-19 16:56 | Discharge Summary ---
Date of Service December 19, 2023 Admission HPI Per Admitting Provider 83-year-old male with past medical history significant for hyperlipidemia, atherosclerotic cardiovascular disease, BPH, CKD stage III, history of dizziness, memory changes, who lives at home with his was brought in because of weakness and shakiness. As per patient is very shaky and not ambulating much. Sometimes he uses walker to go to bathroom. But she is using urinal and putting on diapers. He is eating okay. Swallowing okay. No recent fevers. No complaints of pain except some headache.. No diarrhea or constipation. No nausea or vomiting. Whenever he is putting his one leg on the floor to get up and walk he is having lot of shakiness and getting stuck in that position and she has to call ambulance few times and finally decided to bring the patient to the hospital. Patient is oriented to name only. states sometimes does not know where he is and does not even recognize her. Currently patient can tell his name but could not recognize his and does not know where he is. But seems pleasant. Could not get any history from the patient currently. Hemodynamics are okay. Past medical history. As mentioned above Past surgical history. Left heart catheterization. Colonoscopy. Coronary artery dilatation proximal RCA x 2 [id number], dental surgery, coccyx remote, right foot healed surgery, lumbar laminectomy, right inguinal hernia repair, tonsillectomy, right cataract extraction, sacroiliac joint injection, vasectomy. Social history. . Quit smoking 1965. Smoked 1 pack a day for 40 years. Alcohol 1 glass of wine daily. No drug use. Family history. Brother had diabetes. Father had diabetes. Mother had hypertension. Depression. Sister has diabetes. Admission Exam Per Admitting Provider Physical Exam: General- Not in acute distress Head- atraumatic Eyes- PERRL ENT- oropharynx moist Neck- supple, no JVD. Lungs- clear to auscultation no wheezing or crackles Heart- regular rhythm; no murmur, no gallop. Abdomen- normal bowel sounds, soft, nontender, no distension Extremities- no pretibial edema, no erythema seen Neuro- alert, oriented x 1; PERRL, ; no facial palsy; no dysarthria; moves extremities Principal Diagnosis Generalized weakness, ambulatory dysfunction, dementia with parkinsonism, hypertension, stable CAD Discharge Exam Lying in bed without any acute distress Constitutional well developed, well nourished and + ill appearing Eyes PERRL, conjunctivae normal, anicteric sclerae ENMT external ear and nose normal, oropharynx normal Neck trachea midline, no thyromegaly Respiratory no respiratory distress Auscultation: lungs clear to auscultation bilaterally Cardiovascular Rate/Rhythm: regular rate and regular rhythm; not tachycardic Heart Sounds: normal S1 and normal S2; no abnormal opening sounds Extremities: no edema Gastrointestinal (Abdomen) Inspection/Auscultation: normal bowel sounds; abdomen not distended Percussion/Palpation: abdomen soft; abdomen nontender Lymphatic no cervical or axillary lymphadenopathy Discharge Data Allergies Allergy/AdvReac Type Severity Reaction Status Date / Time halothane Allergy Unknown susceptibility Verified 12/13/23 21:18 to malignant hyperthermia succinylcholine Allergy Unknown susceptiblitiy Verified 12/13/23 21:18 to malignant hyperthermia Consultations 12/13/23 21:07 ED Decision to Admit Stat 12/14/23 08:00 Consult Neurology Routine Ordered Studies 12/13/23 19:06 CT head/brain wo con Stat Hospital Course (1) Generalized weakness: 83 yo M w/ PMH of HLD, atherosclerotic cardiovascular disease, BPH, CKD stage III, dizziness, memory changes, who lives at home with his was brought in because of weakness and shakiness. As per patient is very shaky and not ambulating much. Sometimes he uses walker to go to bathroom. But she is using urinal and putting on diapers. He is eating okay. Swallowing okay. No recent fevers. No complaints of pain except some headache. No diarrhea or constipation. No nausea or vomiting. Whenever he is putting his one leg on the floor to get up and walk he is having lot of shakiness and getting stuck in that position and she has to call ambulance few times and finally decided to bring the patient to the hospital. Patient is oriented to name only. states sometimes does not know where he is and does not even recognize her. He is being managed for the following: Generalized weakness Ambulatory dysfunction Dementia with parkinsonism Failed trial of Sinemet per neurology notes. As per neurology notes from May 2023: previous MRI hydrocephalus was versus NPH but with recent MRI was not consistent with normal pressure hydrocephalus. He was started Namenda but seems is not taking Neurology recommended PT OT and follow-up in 3 months Neuro evaluated this admission, no need for further imaging in this extensive advanced dementia patient D/w pt's 12/13 the nature of end stage dementia and ongoing increasing needs for the patient. She doesn't want pramipexole be started on him after hearing its side effect of hallucinations No acute delirium with minimal unsuitability in bed Remains pleasantly confused without any acute distress Occasionally tries to come out of bed Needs assistance with feeding and other ADL S Awaiting placement Hyperlipidemia: c/w statin BPH: Monitor for urinary retention Hypertension: c/w home metoprolol and Imdur CAD: with prior PTCA and stenting of the proximal mid right coronary artery in January 1995. C/w aspirin, statin and beta-reginaldo DVT prophylaxis: Heparin subcu Disposition: med/surg. pt/ot. cm to assist w/ dc plan. likely will need placement. Full code. Total Time Total Time Spent Total Time Spent (In Minutes): 40 minutes Discharge Plan Discharge Items Patient Disposition: Transfer Inpatient Rehab Fac Reason For Visit: WEAKNESS, SHAKINESS Discharge Diagnosis: Generalized weakness, ambulatory dysfunction, dementia with parkinsonism, hypertension, stable CAD Condition on Discharge: Fair Activity: As commented below Activity Comment: Will need to continue PT and OT. Needs assistance with ADL S Non-emergency contact: Primary Care Provider Call non-emergency contact if: you have any medication questions and your symptoms worsen Follow-up/Referrals: Angelo Cano MD [Primary Care Provider] - (Please make an appointment with your PCP within 7 days following discharge from the Facility) Diet: Heart Healthy Diet Texture: Easy to Chew Addtl Attending Provider Instructions: Patient please take precautions to avoid falls Take your medications as advised Will need assistance with ADLs Please keep appointments with the healthcare providers Pending Studies at Discharge: No Stand-Alone Forms: My [facility] Skilled Items Patient informed of condition?: Yes DNR: No Discharge Level of Care: Acute rehab Communicable Disease: No Discharge Prognosis: Stable Lines: None Urinary Catheter: No Medications and DC Order Prescriptions: Continued acetaminophen [Tylenol] 325 mg Tablet 325 - 650 mg PO QID PRN (Reason: Pain) atorvastatin 20 mg tablet 20 mg PO DAILY isosorbide mononitrate 30 mg tablet extended release 24 hr 30 mg PO QAM aspirin 81 mg Tablet,Delayed Release (Dr/Ec) 81 mg PO DAILY Changed metoprolol tartrate 25 mg tablet 25 mg PO BID Qty: 0 0RF Discharge Orders: Discharge Order (Routine); Ordered 12/19/23 Ordered By: Kolton Mckeon Admission Data Admit Date/Time: 12/13/23 23:56 Attending Provider: Kolton Mckeon Admit Provider: Don Osei Primary Care Provider: Angelo Cano Other Providers: Don Osei; Kinga Liz; Osorio Quinn; Kinga Cooper; Dio Juan; Bhavesh Mir; Jacob Barnett; Mack Caldwell; Taylor Pérez; Akil Antony; Reece Almeida; Matthieu Escamilla; Tushar Rapp; Vikki Wing; Humaira Yoo; Mack Johnson; [facility]; Payam Brewster; [facility] [place]; [facility] Other Interventions: Discharge Summary Assessment (RN) Last Done: 12/19/23 14:47
== END 2023-12-19 17:18 | DRG 57 ==
LOC: ED 18:53 → SUATTDRO 23:56 → 2N 23:56 → 3N 12-18 18:18
DX: N40.0 Benign prostatic hyperplasia without lower urinary tract symptoms; F02.80 Dementia in other diseases classified elsewhere, unspecified severity, without behavioral disturbance, psychotic disturbance, mood disturbance, and anxiety; E78.5 Hyperlipidemia, unspecified; N18.30 Chronic kidney disease, stage 3 unspecified; Z79.82 Long term (current) use of aspirin; Z87.891 Personal history of nicotine dependence; Z83.3 Family history of diabetes mellitus; I25.10 Atherosclerotic heart disease of native coronary artery without angina pectoris; R26.2 Difficulty in walking, not elsewhere classified; I12.9 Hypertensive chronic kidney disease with stage 1 through stage 4 chronic kidney disease, or unspecified chronic kidney disease; G20.C Parkinsonism, unspecified